=== PATIENT | female | born 1995 | race Caucasian/White ===

== ENCOUNTER 2018-05-16 12:28 | Emergency (ER) | payer BC, OTHER, SELFPAY ==
[2018-05-16 12:30] VITALS: BP 130/93; PULSE 74; RESP 16; TEMP 36.6; BMI 34.4
--- NOTE | 2018-05-16 12:53 | EKG12_ITS ---
Test Reason : CP Blood Pressure : / mmHG Vent. Rate : 064 BPM Atrial Rate : 064 BPM P-R Int : 140 ms QRS Dur : 094 ms QT Int : 412 ms P-R-T Axes : 029 063 041 degrees QTc Int : 425 ms Normal sinus rhythm with sinus arrhythmia Normal ECG Confirmed by JORGE POPE, CHRISTINE ([id number]), development editor JEROME CRYSTAL ([id number] on 05/19/2018 1:49:48 PM Referred By: DESMOND Confirmed By:CHRISTINE PATEL MD
--- NOTE | 2018-05-16 13:00 | NURSING ---
NO OLD EKGS
--- NOTE | 2018-05-16 13:14 | RAD_ITS ---
STUDY: X-RAY CHEST REASON FOR EXAM: Female, 22 years old. Chest pain. TECHNIQUE: PA and lateral views of the chest. COMPARISON: Comparison is made with prior study dated May 24, 2013. FINDINGS: There now is evidence of a reticular nodular pattern in both lungs. This may represent mild bilateral infectious process. Follow-up is recommended. There is no demonstrated pleural abnormality. Normal size heart. Normal mediastinum and rosalio. Normal visualized pulmonary arteries. Normal visualized aortic arch and descending thoracic aorta. Normal visualized thoracic spine. Normal visualized ribs, clavicles, and shoulders. There is no demonstrated abnormality of the visualized soft tissue structures of the upper abdomen. RAD/Chest PA and Lateral IMPRESSION: Reticular nodular pattern in both lungs worse at the lung bases. This may represent an infectious process. Follow-up is recommended. Electronically Signed: Frank Lozano, at 13:47 EST , Service support ,
[2018-05-16 13:15] LABS: Absolute Lymphocyte Count 2.01 X10^3/ul (0.83-4.51); Absolute Neutrophil Count 5.8 X10^3/uL (2.0-7.7); Basophil# 0.02 X10^3/uL; Basophil% 0.2 % (0-1); Eosinophil# 0.46 X10^3/uL; Eosinophils% 5.1 % (0-5); Hematocrit 40.2 % (37-47); Hemoglobin 13.3 g/dl (12.0-15.0); Lymphocyte # 2.01 X10^3/ul (4.0); Lymphocyte % 22.2 % (19-41); Mean Corp Hgb Conc 33.1 g/gl (32-36); Mean Corpuscular Hgb 28.2 pg (27.0-32.0); Mean Corpuscular Volume 85.2 fL (81-99); Mean Platelet Vol. 9.2 fl (6.2-12.0); Monocyte# 0.71 X10^3/uL; Monocyte% 7.9 % (0-10); Neutrophil # 5.82 X10^3/uL (2.7-7.7); Neutrophil % 64.4 % (47-70); Platelet Count 269 K/mm3 (150-450); RBC Distribution Width CV 13.5 % (11.6-14.6); RBC Distribution Width SD 42.1 fl (35.1-43.9); Red Blood Count 4.72 M/mm3 (4.2-5.4)
[2018-05-16 13:17] LABS: Erythrocyte Sedimentation Rate 9 mm/hr (0-20)
[2018-05-16 13:18] LABS: POSITIVE COUNT NO; POSITIVE DIFFERENTIAL NO; POSITIVE MORPHOLOGY NO
--- NOTE | 2018-05-16 13:23 | RAD_ITS ---
STUDY: X-RAY - LEFT SHOULDER REASON FOR EXAM: Female, 22 years old. One month history of shoulder pain. No known injury. TECHNIQUE: 2 view(s) of the shoulder. COMPARISON: None. FINDINGS: Normal glenohumeral articulation. Normal acromioclavicular joint. Normal acromion. Normal humeral head and visualized proximal humerus. The soft tissue structures are unremarkable. Normal visualized pulmonary apex. RAD/Shoulder min 2 Views IMPRESSION: Normal x-ray examination of the shoulder. Electronically Signed: Frank Lozano, at 13:46 EST , Service support ,
[2018-05-16 13:25] LABS: D-Dimer Quantitative (DVT/PE) < 0.27 FEU/ug/m (0.27-0.49)
--- NOTE | 2018-05-16 14:12 | ED.VISSUMM ---
- ER Visit Summary Date of Service: 05/16/18 Chief Complaint: [Chest pain] History of Present Illness: The patient is a 22 F [presents to the emergency department with chest discomfort that started yesterday. Patient states that she developed the discomfort somewhat suddenly. Patient describes a stabbing pain that is worse with deep breath and movement. She denies any fever or cough. He denies any shortness of breath. He denies recent illness. He denies any trauma to her chest. She denies recent travel or surgery. She has not had pain like this before.] Physical Examination: [HEENT-PERRLA, EOMI. Cranial nerves II through XII grossly intact. TMs clear. Mucous membranes moist. No adenopathy. Cardiovascular-regular rate and rhythm without murmur or ectopy. Chest wall-patient does have some tenderness to palpation over the sternum and the left sternal costal cartilages. Lungs-clear to auscultation, chest wall stable without crepitus or subcu emphysema Abdomen-normoactive bowel sounds, soft, nontender, no rebound or rigidity, no peritoneal signs. Extremities-intact ?4, normal range of motion, normal pulses, atraumatic. Left shoulder-patient has some pale discoloration to the lateral aspect of her shoulder on the skin measuring approximately 1 cm x 2 cm. Area is tender to palpation. Patient has normal range of motion at the glenohumeral joint.] Test Results: [EKG obtained showed a sinus rhythm with a ventricular rate of 64 bpm with occasional PACs. CBC with differential is normal. Sed rate was 9. D-dimer was less than 0.27. Chest x-ray showed a reticular nodular pattern lung bases which could be infectious x-rays of the left shoulder obtained showed nothing acute and was read as normal.] Emergency Department Course and Treatment: [Patient refused any pain medication] Treatment Plan: [Patient will be given a prescription for naproxen and advised to follow-up with primary care physician within next 3-5 days. Regarding the abnormal findings on chest x-ray I think these are incidental findings and she is had no infectious symptomatology therefore recommend she follow-up with her primary care physician or pulmonology for follow-up. There is no family history of autoimmune diseases.] Disposition: [Discharged home in stable condition] Impression: [Chest wall pain] This note was generated with Dragon dictation software. It may contain incorrect words, spelling, and punctuation that were not noted in review of the chart prior to signing ED Disposition - Plan for ED Patient: Referrals: Masood Avila DO [Primary Care Provider] -
--- NOTE | 2018-05-16 14:16 | ED.DEP ---
ED Disposition - Plan for ED Patient: Instructions: ED Chest Pain Atypical Unkn Cause, ED Chest Pain Costochondritis Prescriptions: Naproxen [Naprosyn] 500 mg PO BID PRN #20 tab Referrals: Masood Avila DO [Primary Care Provider] - 3-5 Days
--- NOTE | 2018-05-16 14:17 | ED.DCSUM_ITS ---
- ER Visit Summary Date of Service: 05/16/18 Chief Complaint: [Chest pain] History of Present Illness: The patient is a 22 F [presents to the emergency department with chest discomfort that started yesterday. Patient states that she developed the discomfort somewhat suddenly. Patient describes a stabbing pain that is worse with deep breath and movement. She denies any fever or cough. He denies any shortness of breath. He denies recent illness. He denies any trauma to her chest. She denies recent travel or surgery. She has not had pain like this before.] Physical Examination: [HEENT-PERRLA, EOMI. Cranial nerves II through XII grossly intact. TMs clear. Mucous membranes moist. No adenopathy. Cardiovascular-regular rate and rhythm without murmur or ectopy. Chest wall- patient does have some tenderness to palpation over the sternum and the left sternal costal cartilages. Lungs-clear to auscultation, chest wall stable without crepitus or subcu emphysema Abdomen-normoactive bowel sounds, soft, nontender, no rebound or rigidity, no peritoneal signs. Extremities-intact ?4, normal range of motion, normal pulses, atraumatic. Left shoulder-patient has some pale discoloration to the lateral aspect of her shoulder on the skin measuring approximately 1 cm x 2 cm. Area is tender to palpation. Patient has normal range of motion at the glenohumeral joint.] Test Results: [EKG obtained showed a sinus rhythm with a ventricular rate of 64 bpm with occasional PACs. CBC with differential is normal. Sed rate was 9. D- dimer was less than 0.27. Chest x-ray showed a reticular nodular pattern lung bases which could be infectious x-rays of the left shoulder obtained showed nothing acute and was read as normal.] Emergency Department Course and Treatment: [Patient refused any pain medication] Treatment Plan: [Patient will be given a prescription for naproxen and advised to follow-up with primary care physician within next 3-5 days. Regarding the abnormal findings on chest x-ray I think these are incidental findings and she is had no infectious symptomatology therefore recommend she follow-up with her primary care physician or pulmonology for follow-up. There is no family history of autoimmune diseases.] Disposition: [Discharged home in stable condition] Impression: [Chest wall pain] This note was generated with Dragon dictation software. It may contain incorrect words, spelling, and punctuation that were not noted in review of the chart prior to signing ED Disposition - Plan for ED Patient: Referrals: Masood Avila DO [Primary Care Provider] -
[2018-05-16 14:25] VITALS: BP 121/76; PULSE 87; RESP 18; O2SAT 99
== END 2018-05-16 14:26 | disposition home or self-care (01) ==
LOC: ED 13:50
PROVIDERS: Emergency Provider Emergency Medicine; Family Provider Family Medicine; PCP Family Medicine
DX: R07.89 Other chest pain (principal); R91.8 Other nonspecific abnormal finding of lung field
CPT/HCPCS: 71046; 73030; 85025; 85379; 85652; 93005; 99283

== ENCOUNTER → 2019-03-19 18:03 | Outpatient (CLI) | payer SELFPAY | PROVIDERS: Family Provider Family Medicine; PCP Family Medicine; Referring Provider Obstetrics & Gynecology; Visit Provider Obstetrics & Gynecology | DX: Z12.4 Encounter for screening for malignant neoplasm of cervix (principal); Z11.3 Encounter for screening for infections with a predominantly sexual mode of transmission ==

== ENCOUNTER → 2019-04-09 15:12 | Outpatient (CLI) | payer OTHER, BC, SELFPAY ==
[2019-04-09 17:30] LABS: Color, Urine Yellow (Yellow); Glucose, Dipstick 50 mg/dl (Normal); Ketone-Dipstick Negative (Negative); Leukocyte Esterase-Dipstick Negative /ul (Negative); Nitrite-Dipstick Negative (Negative); Occult Blood-Urine Negative /ul (Negative); Protein-Dipstick Negative (Negative); Urine Bilirubin Dipstick Negative (Negative); Urine Clarity Sl. Cloudy (Clear); Urine Urobilinogen Normal (Normal); Urine pH 6.5 (5.0 - 8.0)
[2019-04-09 17:31] LABS: Absolute Lymphocyte Count 1.52 X10^3/uL (0.83-4.51); Absolute Neutrophil Count 8.7 X10^3/uL (2.0-7.7); Basophil# 0.03 X10^3/uL; Basophil% 0.3 % (0-1); Eosinophil# 0.15 X10^3/uL; Eosinophils% 1.4 % (0-5); Hematocrit 34.9 % (37-47); Hemoglobin 11.7 g/dL (12.0-15.0); Lymphocyte # 1.52 X10^3/ul (4.0); Lymphocyte % 13.8 % (19-41); Mean Corp Hgb Conc 33.5 g/dL (32-36); Mean Corpuscular Hgb 28.3 pg (27.0-32.0); Mean Corpuscular Volume 84.3 fL (81-99); Mean Platelet Vol. 9.6 fl (6.2-12.0); Monocyte# 0.51 X10^3/uL; Monocyte% 4.6 % (0-10); NRBC Flagged by Analyzer 0 % (0-5); Neutrophil # 8.73 X10^3/uL (2.7-7.7); Neutrophil % 79.4 % (47-70); Platelet Count 304 K/mm3 (150-450); RBC Distribution Width CV 13.1 % (11.6-14.6); RBC Distribution Width SD 39.8 fl (35.1-43.9); Red Blood Count 4.14 M/mm3 (4.2-5.4)
[2019-04-09 17:40] LABS: Glucose Challenge Gest 1H 50g 170 mg/dL (70-140)
[2019-04-09 17:48] LABS: Amphetamine Urine VISTA NEGATIVE (<1000 ng/mL); Barbiturate Urine VISTA NEGATIVE (< 200 ng/mL); Benzodiazepine Urine VISTA NEGATIVE (< 200 ng/mL); Cocaine Urine VISTA NEGATIVE (< 300 ng/mL); Ecstacy Urine VISTA NEGATIVE (< 500 ng/mL); Methadone Urine VISTA NEGATIVE (< 300 ng/mL); PCP Urine VISTA NEGATIVE (< 25 ng/mL); THC Urine VISTA NEGATIVE (< 50 ng/mL); Vista UDS pH Range 6
[2019-04-10 09:15] LABS: HIV - WCH Non-Reactive (Nonreactive); Hepatitis B Surface Antigen Non-Reactive (Nonreactive); Hepatitis C Antibody Non-Reactive (Nonreactive); Rubella IgG 37.9 IU/mL; Vitamin D,25 Hydroxy 14.1 ng/mL (29.95-100.01)
[2019-04-16 03:15] LABS: Prenatal RPR NONREACTIVE (NONREACTIVE)
== END ==
PROVIDERS: PCP Family Medicine; Referring Provider Advanced Practice Midwife; Visit Provider Advanced Practice Midwife
DX: Z34.81 Encounter for supervision of other normal pregnancy, first trimester (principal)
CPT/HCPCS: 36415; 80307; 81002; 82306; 82950; 84443; 85025; 86703; 86762; 86803; 87340

== ENCOUNTER → 2019-04-27 06:44 | Outpatient (CLI) | payer BC, SELFPAY ==
[2019-04-27 07:56] LABS: Glucose GTT-Gestation. Fasting 87 mg/dL (<105)
[2019-04-27 09:03] LABS: Glucose GTT-Gestational 1 Hr 208 mg/dL (<190)
[2019-04-27 09:22] LABS: Glucose GTT-Gestational 2 Hr 170 mg/dL (<165)
[2019-04-27 11:45] LABS: Glucose GTT-Gestational 3 Hr 127 L (<145)
== END ==
PROVIDERS: PCP Family Medicine; Referring Provider Obstetrics & Gynecology; Visit Provider Obstetrics & Gynecology
DX: O24.912 Unspecified diabetes mellitus in pregnancy, second trimester (principal); Z3A.00 Weeks of gestation of pregnancy not specified
CPT/HCPCS: 36415; 82951; 82952

== ENCOUNTER 2019-05-06 08:51 | Outpatient (RCR) | payer BC, SELFPAY | END 2019-05-16 23:59 | LOC: DC 08:51 | PROVIDERS: PCP Family Medicine; Visit Provider Obstetrics & Gynecology | DX: Z71.3 Dietary counseling and surveillance (principal); O24.419 Gestational diabetes mellitus in pregnancy, unspecified control | CPT/HCPCS: G0108 ==

== ENCOUNTER 2019-06-02 13:30 | Outpatient (RCR) | payer BC, SELFPAY | END 2019-06-02 23:59 | disposition home or self-care (01) | LOC: DC 13:30 | PROVIDERS: PCP Family Medicine; Visit Provider Obstetrics & Gynecology | DX: Z71.3 Dietary counseling and surveillance (principal); O24.419 Gestational diabetes mellitus in pregnancy, unspecified control; Z3A.00 Weeks of gestation of pregnancy not specified | CPT/HCPCS: 97802 ==

== ENCOUNTER → 2019-08-25 10:46 | Outpatient (CLI) | payer BC, OTHER, SELFPAY ==
[2019-08-25 14:04] LABS: Hemoglobin 11.6 g/dL (12.0-15.0); Mean Corp Hgb Conc 33.1 g/dL (32-36); Mean Corpuscular Hgb 27.8 pg (27.0-32.0); Mean Corpuscular Volume 83.7 fL (81-99); Mean Platelet Vol. 9.9 fl (6.2-12.0); Platelet Count 286 K/mm3 (150-450); RBC Distribution Width CV 14.5 % (11.6-14.6); RBC Distribution Width SD 43.6 fl (35.1-43.9); Red Blood Count 4.18 M/mm3 (4.2-5.4); White Blood Count 10.5 K/mm3 (4.4-11.0)
== END ==
PROVIDERS: PCP Family Medicine; Visit Provider Obstetrics & Gynecology
DX: Z34.82 Encounter for supervision of other normal pregnancy, second trimester (principal)
CPT/HCPCS: 36415; 85027

== ENCOUNTER → 2019-10-30 14:47 | Outpatient (CLI) | payer BC, SELFPAY | PROVIDERS: PCP Family Medicine; Visit Provider Obstetrics & Gynecology | DX: Z36.85 Encounter for antenatal screening for Streptococcus B (principal) | CPT/HCPCS: 87077; 87081; 87186 ==

== ENCOUNTER 2019-11-12 19:11 | Inpatient (IN) | payer BC, SELFPAY ==
[2019-11-12 19:33] VITALS: BP 133/84; PULSE 92; TEMP 36.9
[2019-11-12] MEDS: Lactated Ringers 1,000 ML 50 ML IV (19:45)
[2019-11-12 20:13] LABS: Absolute Lymphocyte Count 1.59 X10^3/uL (0.83-4.51); Absolute Neutrophil Count 6.8 X10^3/uL (2.0-7.7); Basophil# 0.03 X10^3/uL; Basophil% 0.3 % (0-1); Eosinophil# 0.11 X10^3/uL; Eosinophils% 1.1 % (0-5); Hematocrit 31.2 % (37-47); Hemoglobin 10.2 g/dL (12.0-15.0); Lymphocyte # 1.59 X10^3/ul (4.0); Lymphocyte % 16.5 % (19-41); Mean Corp Hgb Conc 32.7 g/dL (32-36); Mean Corpuscular Hgb 25.8 pg (27.0-32.0); Mean Corpuscular Volume 78.8 fL (81-99); Mean Platelet Vol. 10.9 fl (6.2-12.0); Monocyte% 10.4 % (0-10); NRBC Flagged by Analyzer 0 % (0-5); Neutrophil # 6.79 X10^3/uL (2.7-7.7); Neutrophil % 70.6 % (47-70); Platelet Count 242 K/mm3 (150-450); RBC Distribution Width CV 15.2 % (11.6-14.6); RBC Distribution Width SD 43.2 fl (35.1-43.9); Red Blood Count 3.96 M/mm3 (4.2-5.4); White Blood Count 9.6 K/mm3 (4.4-11.0)
[2019-11-12 20:14] VITALS: BMI 38.2
[2019-11-12] MEDS: miSOPROStol 25 MCG TABLET VAGINAL (20:45)
[2019-11-12 20:47] VITALS: PULSE 87; O2SAT 98
[2019-11-12] MEDS: metFORMIN (XR) 500 MG Tablet 1000 MG PO (21:29)
[2019-11-12 21:41] VITALS: TEMP 36.7
[2019-11-12 21:48] VITALS: BP 134/85; PULSE 87; O2SAT 97
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
[2019-11-12 23:18] VITALS: PULSE 90; O2SAT 98
[2019-11-12 23:19] VITALS: BP 134/83; PULSE 88
[2019-11-13] VITALS (21 sets, daily range): BP systolic 114–140; BP diastolic 66–109; PULSE 67–107; TEMP 36.1–37.2; O2SAT 85–98
[2019-11-13] MEDS: proMETHazine 25 MG Tablet PO (00:26)
[2019-11-13 00:41] LABS: Bedside Glucose 97 mg/dL (70-110)
[2019-11-13 00:41] LABS: Bedside Glucose 89 mg/dL (70-110)
[2019-11-13] MEDS: miSOPROStol 50 MCG TABLET PO (00:44)
[2019-11-13 00:50] LABS: Bedside Glucose 104 mg/dL (70-110)
[2019-11-13 04:56] LABS: Bedside Glucose 80 mg/dL (70-110)
[2019-11-13] MEDS: 0.9% Saline Lock 10 ML Syringe IV ×2 (06:45→18:09)
[2019-11-13] MEDS: Ondansetron 4 MG/2 ML Vial IV ×2 (06:45→23:20)
[2019-11-13] MEDS: Lactated Ringers 500 ML 999 ML IV (07:28)
--- NOTE | 2019-11-13 07:45 | PCM.PN.BLA ---
Progress Note LABOR PROGRESS NOTE No complaints. Reports mild contractions. AVSS GEN - NAD, AAO x 3 FHR 145, moderate variability, + accelerations, no decelerations TOCO 4/10 min SVE - exam limited due to patient discomfort, external os 1cm Laboratory Tests 11/13/19 11/13/19 11/12/19 Range/Units 04:48 00:42 21:01 WBC (4.4-11.0) K/mm3 RBC (4.2-5.4) M/mm3 Hgb (12.0-15.0) g/dL Hct (37-47) % MCV (81-99) fL MCH (27.0-32.0) pg MCHC (32-36) g/dL RDW Std Deviation (35.1-43.9) fl RDW Coeff of Tre (11.6-14.6) % Plt Count (150-450) K/mm3 MPV (6.2-12.0) fl Immature Gran % (Auto) (0.0-0.9) % Neut % (Auto) (47-70) % Lymph % (Auto) (19-41) % Carolina % (Auto) (0-10) % Eos % (Auto) (0-5) % Baso % (Auto) (0-1) % Absolute Neuts (auto) (2.0-7.7) X10^3/uL Absolute Lymphs (auto) (0.83-4.51) X10^3/uL Nucleated RBC % (0-5) % POC Glucose 80 104 89 (70-110) mg/dL Blood Type Antibody Screen 11/12/19 11/12/19 11/12/19 Range/Units 19:47 19:45 19:45 WBC 9.6 (4.4-11.0) K/mm3 RBC 3.96 L (4.2-5.4) M/mm3 Hgb 10.2 L (12.0-15.0) g/dL Hct 31.2 L (37-47) % MCV 78.8 L (81-99) fL MCH 25.8 L (27.0-32.0) pg MCHC 32.7 (32-36) g/dL RDW Std Deviation 43.2 (35.1-43.9) fl RDW Coeff of Tre 15.2 H (11.6-14.6) % Plt Count 242 (150-450) K/mm3 MPV 10.9 (6.2-12.0) fl Immature Gran % (Auto) 1.100 H (0.0-0.9) % Neut % (Auto) 70.6 H (47-70) % Lymph % (Auto) 16.5 L (19-41) % Carolina % (Auto) 10.4 H (0-10) % Eos % (Auto) 1.1 (0-5) % Baso % (Auto) 0.3 (0-1) % Absolute Neuts (auto) 6.8 (2.0-7.7) X10^3/uL Absolute Lymphs (auto) 1.59 (0.83-4.51) X10^3/uL Nucleated RBC % 0 (0-5) % POC Glucose 97 (70-110) mg/dL Blood Type A POSITIVE Antibody Screen NEGATIVE A/P: 24yo G1 @ 39 1/7wga with GDMA2 -Blood sugars appropriate range, Continue Metformin -Eat breakfast -IV fluid bolus, if contractions persist will start pitocin, otherwise proceed with misoprostol 50mcg after breakfast -Maternal and statuses reassuring STROKE Vital Signs/Narrative: Vital Signs Temp Pulse BP Pulse Ox 11/13/19 07:22 98.2 F 89 135/84 H 98 11/13/19 03:54 97.8 F 69 126/73 H 98
[2019-11-13] MEDS: metFORMIN (XR) 500 MG Tablet 1000 MG PO ×2 (09:32→18:09)
[2019-11-13] MEDS: Oxytocin 30 units/NS 500 ml 30 UNITS/500 ML IV.SOLN IV (09:33)
[2019-11-13 10:46] LABS: Bedside Glucose 122 mg/dL (70-110)
[2019-11-13 12:10] LABS: Bedside Glucose 79 mg/dL (70-110)
[2019-11-13 15:10] LABS: Bedside Glucose 74 mg/dL (70-110)
--- NOTE | 2019-11-13 15:49 | PCM.PN.BLA ---
Progress Note CE FT/TH/High. FHR Cat I - FHR 130/mod renetta/+accel/no decel, toco q3-4. Pit @ 20. Plan: allow pitocin break. Pt to ambulate, shower, eat dinner. Will restart after dinner. Discussed c/s for failed induction of labor briefly. STROKE Vital Signs/Narrative: Vital Signs Temp Pulse BP Pulse Ox 11/13/19 14:44 81 138/83 H 97 11/13/19 13:37 67 133/82 H 11/13/19 13:35 97.0 F L 95 11/13/19 11:55 69 117/66 11/13/19 11:54 97.6 F L 96
[2019-11-13 19:31] LABS: Bedside Glucose 91 mg/dL (70-110)
[2019-11-13] MEDS: FLUoxetine 20 MG Capsule 80 MG PO (20:14)
[2019-11-13 22:20] LABS: Bedside Glucose 100 mg/dL (70-110)
[2019-11-13] MEDS: Sodium Citrate/Citric Acid 30 ML UDC PO (22:22)
--- NOTE | 2019-11-13 22:46 | NURSING ---
Patient gave RN verbal assent to give baby medications at delivery; hepatitis B vaccine, vitamin K injection, and erythromycin eye ointment.
[2019-11-13] MEDS: Cefazolin 2 GM in 0.9% Normal Saline 100 ML IV (22:59)
[2019-11-14] VITALS (23 sets, daily range): BP systolic 98–152; BP diastolic 49–90; PULSE 82–105; RESP 16–18; TEMP 36.2–37.2; O2SAT 95–98
--- NOTE | 2019-11-14 00:09 | OP.PCM_ITS ---
Report of Operation Date of Procedure: 11/13/19 Pre-Operative Diagnosis: Elective, maternal request. Post-Operative Diagnosis: Elective, maternal request. 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 All risks, benefits, alternatives discussed with the patient including, but not limited to: risk of bleeding to the point of transfusion, infection, injury to surrounding tissue (bowel or bladder including prolonged luna catheter use), VTE, ICU admission. Patient aware and consented. Patient was taken to the operating room and spinal anesthesia was placed. Patient placed in the dorsal supine position with a left lateral tilt. Luna catheter placed. Prepped and draped in usual sterile fashion. Pfannenstiel skin incision made with scalpel and carried down through underlying tissue. Fascia nicked on either side of the midline and extended bilaterally with Charles scissors. Kimberley clamps used to grasp the superior fascial edge which was tented up and underlying rectus muscles were dissected off bluntly and sharply at midline. Inferior fascial edge was grasped with Kimberley clamps and underlying rectus muscles were dissected off bluntly and sharply. Rectus muscle at midline using hemostats. Peritoneum grasped with hemostats and incised sharply with Metzenbaum scissors. Bladder blade placed. Vesicouterine peritoneum identified and bladder flap created. Low transverse uterine incision made with scalpel and extended bluntly. Clear amniotic fluid noted. Hand was placed into the uterine cavity and with the assistance of gentle fundal pressure head was delivered followed by body. No nuchal cord. Cord clamped and cut, baby handed to nursing. Spontaneous delivery of placenta. Uterus was exteriorized and cleared of all clots with a dry lap. Uterine incision closed interlocking fashion followed by a second vertical imbricating stitch. Uterus replaced into the abdominal cavity. Some oozing noted that was resolved with Bovie cautery. Muscle reapproximated with horizontal mattress sutures. Fascia closed with a running stitch. Subcutaneous tissue closed with a running stitch and skin closed with running subcuticular stitch. At the end of the procedure all needle, lap, and sponge counts were correct x3. Cord Entanglement: None Cord Vessel Description: 3 Vessels Esitmated Blood Loss (ml): 800cc Infant Gender: Male (1 minute): 8 (5 minute): 9 Antibiotic Given: Ancef 2 grams IV x1, Zithromax 500 mg/5 mL X1
[2019-11-14] MEDS: Oxytocin 30 units/NS 500 ml 30 UNITS/500 ML IV.SOLN 167 UNITS IV (00:24)
[2019-11-14 01:01] LABS: Bedside Glucose 157 mg/dL (70-110)
[2019-11-14] MEDS: Acetaminophen 325 MG Tablet 650 MG PO ×4 (02:05→22:17)
[2019-11-14] MEDS: Lactated Ringers 1,000 ML 100 ML IV (03:31)
--- NOTE | 2019-11-14 05:16 | NURSING ---
Verified doses of Tylenol and Toradol with Dr. Alyssa Hendrickson via phone. Plan is to give medication doses as ordered per Dr. Alyssa Hendrickson.
[2019-11-14] MEDS: Ketorolac 30 MG/ML Syringe 15 MG IV ×4 (05:22→23:28)
[2019-11-14] MEDS: 0.9% Saline Lock 10 ML Syringe IV ×3 (05:23→23:32)
[2019-11-14 06:01] LABS: Bedside Glucose 81 mg/dL (70-110)
[2019-11-14 06:33] LABS: Hematocrit 27.1 % (37-47); Mean Corp Hgb Conc 33.2 g/dL (32-36); Mean Corpuscular Hgb 25.9 pg (27.0-32.0); Mean Corpuscular Volume 78.1 fL (81-99); Mean Platelet Vol. 10.7 fl (6.2-12.0); Platelet Count 197 K/mm3 (150-450); RBC Distribution Width CV 15.2 % (11.6-14.6); RBC Distribution Width SD 42.1 fl (35.1-43.9); Red Blood Count 3.47 M/mm3 (4.2-5.4); White Blood Count 15.3 K/mm3 (4.4-11.0)
[2019-11-14] MEDS: Senna/Docusate Sodium 1 Tablet PO (11:17)
--- NOTE | 2019-11-14 11:21 | PN.OBGYN_ITS ---
<Katarina Pickering - Last Filed: 11/14/19 11:21> Patient Problems: Active and Suspected Problems (Last Updated 11/13/19 @ 07:[address] Tamara Garcia MD) 39 weeks gestation of (Acute) Gestational diabetes (Acute) Depression (Acute) Subjective: Very tired today. IV medicine is keeping pain well controlled. Has not ambulated yet. Luna still in place. Objective: VSS. Fundus is firm, midline at u. Lochia rubra moderate. Incision with small [place], previous drainage, otherwise CDI. - Physical Exam Vitals/I&O's: Vital Signs Temp Pulse Resp BP Pulse Ox 97.9 F 83 16 98/49 L 96 11/14/19 08:13 11/14/19 08:13 11/14/19 08:13 11/14/19 08:13 11/14/19 08:13 Oxygen Delivery Method Room Air Weight: 101.151 kg Body Mass Index (BMI) 38.2 Intake and Output for Last 24 Hours 11/12/19 11/13/19 11/14/19 23:59 23:59 23:59 Intake Total 500 / 500 1729.77 / 1729.77 1015 / 1015 Output Total 575 / 575 Balance 500 / 500 1729.77 / 1329.77 440 / 440 General: Alert, Oriented x3, Cooperative HEENT: Atraumatic, PERRLA, EOMI, Normocephalic Neck: Supple, No JVD, Negative Carotid Bruits Lungs: Clear to auscultation, Normal air movement Cardiovascular: Regular rate, No murmurs Abdomen: Bowel Sounds Present, Soft, Non Tender, - - incision Extremities: No edema, Capillary Refill Less than 3 Seconds Skin: No rashes, No breakdown, Incision - CDI with scant old drainage circled Musculoskeletal: No Tenderness to Palpation of Joints or Extremities Neurological: Cranial nerves II-XII grossly intact Psych/Mental Status: Normal Affect, Appropriate Laboratory Results 11/13/19 12:03: POC Glucose 79 11/13/19 15:07: POC Glucose 74 11/13/19 19:22: POC Glucose 91 11/13/19 22:17: POC Glucose 100 11/14/19 00:16: POC Glucose 157 H 11/14/19 05:47: POC Glucose 81 11/14/19 06:25: WBC 15.3 H, RBC 3.47 L, Hgb 9.0 L, Hct 27.1 L, MCV 78.1 L, MCH 25.9 L, MCHC 33.2, RDW Std Deviation 42.1, RDW Coeff of Tre 15.2 H, Plt Count 197, MPV 10.7 Current Medications Acetaminophen (Tylenol) 650 mg PO Q6H [facility] Last Admin: 11/14/19 08:31 Dose: 650 mg Documented by: Bisacodyl (Dulcolax) 10 mg RECTAL UD PRN PRN Reason: If no BM Dextrose (D50w Syringe) 0 gm IV X1 PRN; Protocol PRN Reason: Hypoglycemia Diphenhydramine HCl (Benadryl) 25 mg PO Q6H PRN PRN PRN Reason: ITCHING Stop: 11/15/19 00:12 Glucagon () 1 mg IM .X1 PRN PRN Reason: Hypoglycemia Hydrocortisone (Hytone) 1 applic TOPICAL TID PRN PRN; Protocol PRN Reason: Discomfort Naloxone HCl 4 mg/ Dextrose 504 mls @ 0 mls/hr IV .Q0M PRN; Protocol PRN Reason: To maintain Resp. rate >10 Lactated Ringer's () 1,000 mls @ 100 mls/hr IV .Q10H [facility] Last Admin: 11/14/19 03:31 Dose: 100 mls/hr Documented by: Naloxone HCl 4 mg/ Dextrose 504 mls @ 0 mls/hr IV .Q0M PRN; Protocol PRN Reason: Respiratory depression Ibuprofen (Motrin) 600 mg PO Q6H [facility] Ketorolac Tromethamine (Toradol (Bkc)) 15 mg IV Q6H [facility] Stop: 11/14/19 23:31 Last Admin: 11/14/19 11:16 Dose: 15 mg Documented by: Methylergonovine Maleate (Methergine) 0.2 mg IM X1 PRN PRN Reason: Uterine Atony Nalbuphine HCl (Nubain) 5 mg IV Q3H PRN PRN PRN Reason: ITCHING Stop: 11/15/19 00:12 Naloxone HCl (Narcan) 0.02 mg IV Q1M PRN PRN Reason: RR< 10 AND PT UNRESPONSIVE Naloxone HCl (Narcan) 0.02 mg IV Q1M PRN PRN Reason: RR <10 and pt unresponsive Ondansetron HCl (Zofran) 4 mg IV Q4H PRN PRN PRN Reason: Nausea Last Admin: 11/13/19 23:20 Dose: 4 mg Documented by: Oxycodone HCl (Oxyir) 5 - 10 mg PO Q4H PRN PRN PRN Reason: Pain Score 4-10/10 Prochlorperazine Edisylate (Compazine Iv) 10 mg IV Q6H PRN PRN PRN Reason: NAUSEA Senna/Docusate Sodium (Senokot-S, Ethel-Colace) 0 tablet PO DAILY [facility] Last Admin: 11/14/19 11:17 Dose: 1 tablet Documented by: Simethicone (Mylicon) 80 mg PO PCHS PRN PRN Reason: Indigestion/stomach pain Sodium Chloride () 5 - 15 ml IV UD PRN PRN Reason: SALINE FLUSH Last Admin: 11/14/19 05:23 Dose: 10 ml Documented by: Zolpidem Tartrate (Ambien (Generic)) 5 mg PO QHS PRN PRN PRN Reason: Insomnia Medical Necessity - Tobacco Use Smoking Status: Never smoker Assessment/Plan All Active Problems (Last Updated 11/13/19 @ 07:[address] Tamara Garcia MD) 39 weeks gestation of (Acute) Gestational diabetes (Acute) Depression (Acute) A/P: POD #1 Primary Csection for failure to progress Normal involution and course Plan to remove luna today Plan to change to PO pain medication Would like to discharge tomorrow if possible <Evi Hendrickson - Last Filed: 11/14/19 11:46> - Physical Exam Vitals/I&O's: Vital Signs Temp Pulse Resp BP Pulse Ox 97.9 F 83 16 98/49 L 96 11/14/19 08:13 11/14/19 08:13 11/14/19 08:13 11/14/19 08:13 11/14/19 08:13 Oxygen Delivery Method Room Air Weight: 101.151 kg Body Mass Index (BMI) 38.2 Intake and Output for Last 24 Hours 11/12/19 11/13/19 11/14/19 23:59 23:59 23:59 Intake Total 500 / 500 1729.77 / 1729.77 1015 / 1015 Output Total 575 / 575 Balance 500 / 500 1729.77 / 1329.77 440 / 440 Laboratory Results 11/13/19 12:03: POC Glucose 79 11/13/19 15:07: POC Glucose 74 11/13/19 19:22: POC Glucose 91 11/13/19 22:17: POC Glucose 100 11/14/19 00:16: POC Glucose 157 H 11/14/19 05:47: POC Glucose 81 11/14/19 06:25: WBC 15.3 H, RBC 3.47 L, Hgb 9.0 L, Hct 27.1 L, MCV 78.1 L, MCH 25.9 L, MCHC 33.2, RDW Std Deviation 42.1, RDW Coeff of Tre 15.2 H, Plt Count 197, MPV 10.7 Current Medications Acetaminophen (Tylenol) 650 mg PO Q6H [facility] Last Admin: 11/14/19 08:31 Dose: 650 mg Documented by: Bisacodyl (Dulcolax) 10 mg RECTAL UD PRN PRN Reason: If no BM Dextrose (D50w Syringe) 0 gm IV X1 PRN; Protocol PRN Reason: Hypoglycemia Diphenhydramine HCl (Benadryl) 25 mg PO Q6H PRN PRN PRN Reason: ITCHING Stop: 11/15/19 00:12 Glucagon () 1 mg IM .X1 PRN PRN Reason: Hypoglycemia Hydrocortisone (Hytone) 1 applic TOPICAL TID PRN PRN; Protocol PRN Reason: Discomfort Naloxone HCl 4 mg/ Dextrose 504 mls @ 0 mls/hr IV .Q0M PRN; Protocol PRN Reason: To maintain Resp. rate >10 Lactated Ringer's () 1,000 mls @ 100 mls/hr IV .Q10H [facility] Last Admin: 11/14/19 03:31 Dose: 100 mls/hr Documented by: Naloxone HCl 4 mg/ Dextrose 504 mls @ 0 mls/hr IV .Q0M PRN; Protocol PRN Reason: Respiratory depression Ibuprofen (Motrin) 600 mg PO Q6H [facility] Ketorolac Tromethamine (Toradol (Bkc)) 15 mg IV Q6H [facility] Stop: 11/14/19 23:31 Last Admin: 11/14/19 11:16 Dose: 15 mg Documented by: Methylergonovine Maleate (Methergine) 0.2 mg IM X1 PRN PRN Reason: Uterine Atony Nalbuphine HCl (Nubain) 5 mg IV Q3H PRN PRN PRN Reason: ITCHING Stop: 11/15/19 00:12 Naloxone HCl (Narcan) 0.02 mg IV Q1M PRN PRN Reason: RR< 10 AND PT UNRESPONSIVE Naloxone HCl (Narcan) 0.02 mg IV Q1M PRN PRN Reason: RR <10 and pt unresponsive Ondansetron HCl (Zofran) 4 mg IV Q4H PRN PRN PRN Reason: Nausea Last Admin: 11/13/19 23:20 Dose: 4 mg Documented by: Oxycodone HCl (Oxyir) 5 - 10 mg PO Q4H PRN PRN PRN Reason: Pain Score 4-10/10 Prochlorperazine Edisylate (Compazine Iv) 10 mg IV Q6H PRN PRN PRN Reason: NAUSEA Senna/Docusate Sodium (Senokot-S, Ethel-Colace) 0 tablet PO DAILY [facility] Last Admin: 11/14/19 11:17 Dose: 1 tablet Documented by: Simethicone (Mylicon) 80 mg PO [facility] PRN PRN Reason: Indigestion/stomach pain Sodium Chloride () 5 - 15 ml IV UD PRN PRN Reason: SALINE FLUSH Last Admin: 11/14/19 05:23 Dose: 10 ml Documented by: Zolpidem Tartrate (Ambien (Generic)) 5 mg PO QHS PRN PRN PRN Reason: Insomnia Assessment/Plan 24 yo POD#1 s/p elective section. Chronic anemia, iron supplement at home. Expect discharge tomorrow morning.
--- NOTE | 2019-11-14 14:15 | CASEMGMT ---
Social Work Assessment Labor and Delivery Unit Date of Referral: 11/14/2019 Time of Referral: 03:14 Referred By: Dr. Evi Hendrickson Date of Intervention: 11/14/2019 Time of Intervention: 14:15 Reason for Referral: Mother of baby (MOB) with history of anxiety. History obtained from: MOB, Father of baby (FOB), nursing staff and chart. Household composition: MOB, FOB (Connor Woodson) and now this infant, El Woodson. Patient's parent/guardian status: FOB reports that was plan and accepted. Both MOB and FOB report a connection with . MOB and FOB are . Medical History: MOB prior to delivering infant. MOB delivered infant via at 39 weeks. Infant male born on 11/13/2020 with apgars of 8 and 9 at 1min and 5min. weight of 3570g. MOB with gestational diabetes. transferred to special care nursery on 11/14/2019 for monitoring blood sugars further. Special care nursery reports that is doing well. Educational Status: MOB with a masters degree in social work. MOB denies any issues with comprehension or understanding. Financial Status: MOB and FOB both work full-time. 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 FOB works for the [employer] and will have two weeks off work. Infant Supplies: MOB reports to have all needed supplies crib, car seat, clothing etc. Childcare/Caregiver(s): MOB plans to be primary caregiver of until returning to work. Transportation: No issues. Programs/Agencies Involved: MOB with WIC involvement prior to infant delivery. MOB/FOB deny a need for WIC services. Children Services/Legal Issues: None Mental Health History: MOB with history of Anxiety and Depression. MOB states to manage depression through Prozac. MOB denies any history of suicidal thoughts/plans/intents. Substance Use History: Denies. Maternal and Drug Screens: No drug screens completed on admission. MOB with negative tox screen in 2019. PHQ9: Did not trigger at time of assessment. MOB has been tearful with nursing staff but was not with this home health care social worker. Family/Social Stressors: Denies any current stressors. Support Systems: MOB states to have positive support from family and friends. Depression and Anxiety/Shaken Baby/Safe Sleeping: MOB educated on Depression and Anxiety along with Shaken Baby and Safe Sleeping. MOB provided with local resources and information on depression and anxiety, shaken baby, and safe sleeping. ASSESSMENT: Met with MOB and FOB in special care nursery with infant. This home health care social worker introduced self and home health care social worker role. This home health care social worker offering to return at a later time. MOB wanting to speak with this home health care social worker and wanting FOB to remain present. MOB holding . MOB gazing towards and finger tipping often during assessment. MOB with a pleasant and engaged affect. MOB states to have no concerns on returning to community. This home health care social worker broached topic of depression signs/symptoms. MOB states to have coping skills in place and to feel comfortable speaking with FOB or doctors if depression signs or symptoms would develop. This home health care social worker acknowledging with MOB and FOB that MOB did have an extended labor with now in SCN and this can cause stress or emotions that are normal such a being tearful or tried. Normalizing MOB's current emotions/feelings. MOB and FOB thanking this home health care social worker and declining any community referrals. PLAN: Infant to discharge to home with MOB and FOB once medically cleared. No other services requested or indicated. Nelda GUNDERSON, TAWNYA
--- NOTE | 2019-11-14 15:50 | CPS ---
incentive left in room, nursing to start
[2019-11-15] VITALS (7 sets, daily range): BP systolic 128–148; BP diastolic 65–86; PULSE 77–112; RESP 14–16; TEMP 36.1–36.8; O2SAT 96
[2019-11-15] MEDS: oxyCODONE 5 MG Tablet PO ×5 (02:38→22:02)
[2019-11-15] MEDS: Acetaminophen 325 MG Tablet 650 MG PO ×4 (03:50→22:35)
[2019-11-15] MEDS: Ibuprofen 600 MG Tablet PO ×4 (05:43→22:35)
--- NOTE | 2019-11-15 09:34 | PN.OBGYN_ITS ---
<Katarina Pickering - Last Filed: 11/15/19 09:54> Patient Problems: Active and Suspected Problems (Last Updated 11/13/19 @ 07:[address] Tamara Garcia MD) 39 weeks gestation of (Acute) Gestational diabetes (Acute) Depression (Acute) Subjective: Feeling better today. Reports yesterday was very emotional after being told one thing after another with her son being in the special care nursery. She cried most of the day yesterday, but today is doing a lot better. She continues to breastfeed and isn't sleeping much going back and forth between her room and special care. States pain is much better today and when she is resting it is 0/10. When ambulating pain becomes 4/10. Urinating well and passing flatus. Would like to stay as long as son has to stay inpatient. Objective: VSS. Fundus is firm, midline, u/1. Incision is CDI. Lochia rubra light. - Physical Exam Vitals/I&O's: Vital Signs Temp Pulse Resp BP Pulse Ox 97.5 F L 77 14 148/86 H 96 11/15/19 08:25 11/15/19 08:25 11/15/19 08:25 11/15/19 08:25 11/15/19 02:40 Oxygen Delivery Method Room Air Weight: 101.151 kg Body Mass Index (BMI) 38.2 Intake and Output for Last 24 Hours 11/13/19 11/14/19 11/15/19 23:59 23:59 23:59 Intake Total 1729.77 / 1729.77 1663.33 / 1663.33 Output Total 1625 / 1625 Balance 1729.77 / 1329.77 38.33 / 38.33 General: Alert, Oriented x3, Cooperative HEENT: Atraumatic, PERRLA, EOMI, Normocephalic Neck: Supple, No JVD, Negative Carotid Bruits Lungs: Clear to auscultation, Normal air movement Cardiovascular: Regular rate, No murmurs Abdomen: Bowel Sounds Present, Soft, Non Tender, - - incision Extremities: No edema, Capillary Refill Less than 3 Seconds Skin: No rashes, No breakdown, Incision - CDI Musculoskeletal: No Tenderness to Palpation of Joints or Extremities Neurological: Cranial nerves II-XII grossly intact Psych/Mental Status: Normal Affect, Appropriate Laboratory Results 11/12/19 19:45: Blood Type Cancelled, Antibody Screen Cancelled 11/14/19 20:00: Blood Type A POSITIVE, Antibody Screen NEGATIVE Current Medications Acetaminophen (Tylenol) 650 mg PO Q6H [facility] Last Admin: 11/15/19 03:50 Dose: 650 mg Documented by: Bisacodyl (Dulcolax) 10 mg RECTAL UD PRN PRN Reason: If no BM Dextrose (D50w Syringe) 0 gm IV X1 PRN; Protocol PRN Reason: Hypoglycemia Glucagon () 1 mg IM .X1 PRN PRN Reason: Hypoglycemia Hydrocortisone (Hytone) 1 applic TOPICAL TID PRN PRN; Protocol PRN Reason: Discomfort Naloxone HCl 4 mg/ Dextrose 504 mls @ 0 mls/hr IV .Q0M PRN; Protocol PRN Reason: To maintain Resp. rate >10 Naloxone HCl 4 mg/ Dextrose 504 mls @ 0 mls/hr IV .Q0M PRN; Protocol PRN Reason: Respiratory depression Ibuprofen (Motrin) 600 mg PO Q6H [facility] Last Admin: 11/15/19 05:43 Dose: 600 mg Documented by: Methylergonovine Maleate (Methergine) 0.2 mg IM X1 PRN PRN Reason: Uterine Atony Naloxone HCl (Narcan) 0.02 mg IV Q1M PRN PRN Reason: RR< 10 AND PT UNRESPONSIVE Naloxone HCl (Narcan) 0.02 mg IV Q1M PRN PRN Reason: RR <10 and pt unresponsive Ondansetron HCl (Zofran) 4 mg IV Q4H PRN PRN PRN Reason: Nausea Last Admin: 11/13/19 23:20 Dose: 4 mg Documented by: Oxycodone HCl (Oxyir) 5 - 10 mg PO Q4H PRN PRN PRN Reason: Pain Score 4-10/10 Last Admin: 11/15/19 08:25 Dose: 10 mg Documented by: Prochlorperazine Edisylate (Compazine Iv) 10 mg IV Q6H PRN PRN PRN Reason: NAUSEA Senna/Docusate Sodium (Senokot-S, Ethel-Colace) 0 tablet PO DAILY [facility] Last Admin: 11/14/19 11:17 Dose: 1 tablet Documented by: Simethicone (Mylicon) 80 mg PO [facility] PRN PRN Reason: Indigestion/stomach pain Sodium Chloride () 5 - 15 ml IV UD PRN PRN Reason: SALINE FLUSH Last Admin: 11/14/19 23:32 Dose: 15 ml Documented by: Zolpidem Tartrate (Ambien (Generic)) 5 mg PO QHS PRN PRN PRN Reason: Insomnia Medical Necessity - Tobacco Use Smoking Status: Never smoker Assessment/Plan All Active Problems (Last Updated 11/13/19 @ 07:[address] Tamara Garcia MD) 39 weeks gestation of (Acute) Gestational diabetes (Acute) Depression (Acute) A/P: POD #2 S/P Primary Normal involution and lochia mother Male infant in special care nursery for blood sugar control Maternal BS stable, continue oral medication BPs have been mildly elevated, to get pre-e labs Anxious/Sad yesterday, but denies any s/s of PPD right now Resume home dosage of Fluoxetine 80mg QHS Will plan to discharge tomorrow Attending MD: Dr. Alyssa Hendrickson updated on unit <Evi Hendrickson - Last Filed: 11/15/19 19:42> - Physical Exam Vitals/I&O's: Vital Signs Temp Pulse Resp BP Pulse Ox 97 F L 92 16 128/65 H 96 11/15/19 16:01 11/15/19 16:01 11/15/19 16:01 11/15/19 16:01 11/15/19 02:40 Oxygen Delivery Method Room Air Weight: 101.151 kg Body Mass Index (BMI) 38.2 Intake and Output for Last 24 Hours 11/13/19 11/14/19 11/15/19 23:59 23:59 23:59 Intake Total 1729.77 / 1729.77 1663.33 / 1663.33 Output Total 1625 / 1625 Balance 1729.77 / 1329.77 38.33 / 38.33 Laboratory Results 11/12/19 19:45: Blood Type Cancelled, Antibody Screen Cancelled 11/14/19 20:00: Blood Type A POSITIVE, Antibody Screen NEGATIVE 11/15/19 12:30: WBC 9.5, RBC 3.25 L, Hgb 8.3 L, Hct 25.8 L, MCV 79.4 L, MCH 25.5 L, MCHC 32.2, RDW Std Deviation 44.5 H, RDW Coeff of Tre 15.6 H, Plt Count 211, MPV 10.6, Immature Gran % (Auto) 1.000 H, Neut % (Auto) 77.6 H, Lymph % (Auto) 13.3 L, [place] % (Auto) 6.3, Eos % (Auto) 1.6, Baso % (Auto) 0.2, Absolute Neuts (auto) 7.4, Absolute Lymphs (auto) 1.27, Nucleated RBC % 0 11/15/19 12:30: Sodium 139, Potassium 4.1, Chloride 110 H, Carbon Dioxide 24.0, Anion Gap 5, BUN 9, Creatinine 0.56, Estim Creat Clear Calc 132.61, Est GFR (MDRD) Af Amer 169, Est GFR (MDRD) Non-Af 140, BUN/Creatinine Ratio 16.0, Glucose 105, Calcium 8.7, Total Bilirubin 0.20, AST 20, ALT 11 L, Alkaline Phosphatase 153 H, Total Protein 5.9 L, Albumin 2.3 L, Globulin 3.6, Albumin/Globulin Ratio 0.6 L 11/15/19 13:20: U Random Total Protein < 6.0, Urine Creatinine 22.20 Current Medications Acetaminophen (Tylenol) 650 mg PO Q6H [facility] Last Admin: 11/15/19 15:56 Dose: 650 mg Documented by: Bisacodyl (Dulcolax) 10 mg RECTAL UD PRN PRN Reason: If no BM Dextrose (D50w Syringe) 0 gm IV X1 PRN; Protocol PRN Reason: Hypoglycemia Fluoxetine HCl (Prozac) 80 mg PO QHS [facility] Glucagon () 1 mg IM .X1 PRN PRN Reason: Hypoglycemia Hydrocortisone (Hytone) 1 applic TOPICAL TID PRN PRN; Protocol PRN Reason: Discomfort Naloxone HCl 4 mg/ Dextrose 504 mls @ 0 mls/hr IV .Q0M PRN; Protocol PRN Reason: To maintain Resp. rate >10 Naloxone HCl 4 mg/ Dextrose 504 mls @ 0 mls/hr IV .Q0M PRN; Protocol PRN Reason: Respiratory depression Ibuprofen (Motrin) 600 mg PO Q6H [facility] Last Admin: 11/15/19 17:56 Dose: 600 mg Documented by: Methylergonovine Maleate (Methergine) 0.2 mg IM X1 PRN PRN Reason: Uterine Atony Naloxone HCl (Narcan) 0.02 mg IV Q1M PRN PRN Reason: RR< 10 AND PT UNRESPONSIVE Naloxone HCl (Narcan) 0.02 mg IV Q1M PRN PRN Reason: RR <10 and pt unresponsive Ondansetron HCl (Zofran) 4 mg IV Q4H PRN PRN PRN Reason: Nausea Last Admin: 11/13/19 23:20 Dose: 4 mg Documented by: Oxycodone HCl (Oxyir) 5 - 10 mg PO Q4H PRN PRN PRN Reason: Pain Score 4-10/10 Last Admin: 11/15/19 17:56 Dose: 10 mg Documented by: Prochlorperazine Edisylate (Compazine Iv) 10 mg IV Q6H PRN PRN PRN Reason: NAUSEA Senna/Docusate Sodium (Senokot-S, Ethel-Colace) 0 tablet PO DAILY [facility] Last Admin: 11/15/19 10:13 Dose: 2 tablet Documented by: Simethicone (Mylicon) 80 mg PO [facility] PRN PRN Reason: Indigestion/stomach pain Sodium Chloride () 5 - 15 ml IV UD PRN PRN Reason: SALINE FLUSH Last Admin: 11/14/19 23:32 Dose: 15 ml Documented by: Zolpidem Tartrate (Ambien (Generic)) 5 mg PO QHS PRN PRN PRN Reason: Insomnia Assessment/Plan POD#2 s/p primary section. Baby in special care for glucose control. New dx of gestational hypertension based on BPs >140/90s during admission. Labs wnl. Home tomorrow.
[2019-11-15] MEDS: Senna/Docusate Sodium 1 Tablet PO (10:13)
[2019-11-15 12:40] LABS: Absolute Lymphocyte Count 1.27 X10^3/uL (0.83-4.51); Absolute Neutrophil Count 7.4 X10^3/uL (2.0-7.7); Basophil# 0.02 X10^3/uL; Basophil% 0.2 % (0-1); Eosinophil# 0.15 X10^3/uL; Eosinophils% 1.6 % (0-5); Hematocrit 25.8 % (37-47); Hemoglobin 8.3 g/dL (12.0-15.0); Lymphocyte # 1.27 X10^3/ul (4.0); Lymphocyte % 13.3 % (19-41); Mean Corp Hgb Conc 32.2 g/dL (32-36); Mean Corpuscular Hgb 25.5 pg (27.0-32.0); Mean Corpuscular Volume 79.4 fL (81-99); Mean Platelet Vol. 10.6 fl (6.2-12.0); Monocyte% 6.3 % (0-10); NRBC Flagged by Analyzer 0 % (0-5); Neutrophil # 7.39 X10^3/uL (2.7-7.7); Neutrophil % 77.6 % (47-70); Platelet Count 211 K/mm3 (150-450); RBC Distribution Width CV 15.6 % (11.6-14.6); RBC Distribution Width SD 44.5 fl (35.1-43.9); Red Blood Count 3.25 M/mm3 (4.2-5.4); White Blood Count 9.5 K/mm3 (4.4-11.0)
[2019-11-15 12:53] LABS: ALB/GLOB Ratio 0.6 RATIO (0.9-2.4); AST(SGOT) 20 U/L (15-37); Alanine Aminotransfer ALT/SGPT 11 U/L (13-56); Albumin, Serum 2.3 g/dL (3.2-5.0); Alkaline Phosphatase 153 U/L (45-117); Anion Gap 5 (5-15); BUN 9 mg/dL (7-18); Calcium,Total 8.7 mg/dL (8.5-10.1); Chloride 110 mmol/L (98-107); Creatinine, Serum 0.56 mg/dL (0.55-1.02); EST Glomerular Filtration Rate 140 mL/min (>60); Est Glom Filt Rate - Afr Amer 169 mL/min (>60); Estimated Creatinine Clearance 132.61 ml/min; Globulin 3.6 g/dL (2.2-4.2); Glucose 105 mg/dL (74-106); Potassium 4.1 mmol/L (3.5-5.1); Protein, Total 5.9 g/dL (6.4-8.2); Sodium Level 139 mmol/L (136-145)
[2019-11-15 13:40] LABS: Protein, Urine (Random) < 6.0 mg/dL (<11.9)
[2019-11-15] MEDS: FLUoxetine 20 MG Capsule 80 MG PO (22:38)
[2019-11-16] MEDS: Acetaminophen 325 MG Tablet 650 MG PO ×2 (03:33→09:54)
[2019-11-16 03:34] VITALS: BP 124/69; PULSE 82; RESP 18; TEMP 36.3; O2SAT 96
[2019-11-16] MEDS: oxyCODONE 5 MG Tablet PO ×3 (03:54→13:41)
[2019-11-16] MEDS: Ibuprofen 600 MG Tablet PO ×2 (05:43→11:25)
--- NOTE | 2019-11-16 07:44 | DCINST_ITS ---
Discharge Diet: No Restrictions Discharge Activity: May Not Drive - for 2 weeks or while taking narcotic pain meds., May Shower, May Take a Tub Bath - in 7 days. May resume sexual activity in: 4-6 weeks Lifting Restrictions: 20 pounds Additional Activity Instructions:: Nothing in the vagina for 4-6 weeks. You may return to work/school in 6 weeks. Call your doctor if your incision/area has: Continuous Slow Oozing, Sudden Increased Bleeding, Increased Pain/ Swelling, Increased Redness, Foul Smelling Discharge Call your doctor if you observe: Fever of 101 or Higher Suture Line Care: Avoid Pulling/Pushing, Avoid Pinching/Bending Remove Dressing in (days):: 5 Cleanse incision/area with: Soap & Water Additional Instructions: If you experience any of the following, contact your healthcare provider. * Bleeding that soaks a pad every hour for 2 hours * Fever 100.4 or higher * Unrelieved incision or abdominal pain * Swelling, redness, discharge or bleeding from your incision or episiotomy site * Your incision begins to separate * Problems urinating (including inability to urinate or burning while urinating). * Visual changes * Severe headache * Flu-like symptoms * Pain or redness in one of both of your breasts * Pain, warmth, tenderness or swelling in your legs, especially the calf area * Frequent nausea and vomiting * Symptoms of depression or anxiety If you experience any of the following, call 911 or go to the nearest Emergency Room. * Chest pain * Problems breathing * Seizure activity * Partial or complete paralysis of a body part, slurred speech, weakness or drooping of the face, or a sudden inability to walk or hold your balance Allergies/Adverse Reactions: Allergies No Known Allergies Allergy (Verified 05/16/18 12:33) Medications to take at Discharge Fluoxetine HCl 80 mg PO DAILY 09/24/15 Pnv No.95/Ferrous Fum/Folic AC [ Caplet] 1 ea PO DAILY 11/12/19 Follow-Up: Call to make an appointment with your doctor for an incision and BP check in 1 week. You will also need a 6 week post- follow up appointment. Test results from this visit will be discussed in further detail at your follow- up appointment, if applicable. Please Follow Up With: Tamara Fofana MD - ] When: 1 week for incision and BP check Primary Care Physician: Masood Avila DO [Primary Care Provider] -
--- NOTE | 2019-11-16 07:47 | PCM.DC.SUM ---
Discharge Date and Diagnosis - Problem List Patient Problems: Active and Suspected Problems (Last Updated 11/13/19 @ 07:[address] Tamara Garcia MD) 39 weeks gestation of (Acute) Gestational diabetes (Acute) Depression (Acute) Date of Admission: 11/12/19 Date of Discharge: 11/16/19 - Primary Discharge Diagnosis Acute Problems: Active Problems (Last Updated 11/13/19 @ 07:[address] Tamara Garcia MD) 39 weeks gestation of (Acute) Gestational diabetes (Acute) Depression (Acute) Hospital Course and Treatment Operations: - - section Summary of Care Provided: The patient is a 24 year old F [] Patient Problems: Active and Suspected Problems (Last Updated 11/13/19 @ 07:[address] Tamara Garcia MD) 39 weeks gestation of (Acute) Gestational diabetes (Acute) Depression (Acute) Subjective: Feeling much better, but still having a lot of abdominal sharp pain with quick movements. Has been ambulating to and from special care nursery. Urinating well and passing flatus. well. Denies any concerns. Would like to discharge today if infant can. Objective: VSS with one systolic BP 140s overnight, but reported anxiety after leaving special care nursery. Fundus is firm, midline, u/1. Surgical dressing is dry, intact with small circled amount of old drainage. Abdominal binder in place. Lochia rubra light. - Physical Exam Vitals/I&O's: Vital Signs Temp Pulse Resp BP Pulse Ox 97.3 F L 82 18 124/69 H 96 11/16/19 03:34 11/16/19 03:34 11/16/19 03:34 11/16/19 03:34 11/16/19 03:34 Oxygen Delivery Method Room Air Weight: 101.151 kg Body Mass Index (BMI) 38.2 Intake and Output for Last 24 Hours 11/14/19 11/15/19 11/16/19 23:59 23:59 23:59 Intake Total 1663.33 / 1663.33 Output Total 1625 / 1625 Balance 38.33 / 38.33 General: Alert, Oriented x3, Cooperative HEENT: Atraumatic, PERRLA, EOMI, Normocephalic Neck: Supple, No JVD, Negative Carotid Bruits Lungs: Clear to auscultation, Normal air movement Cardiovascular: Regular rate, No murmurs Abdomen: Bowel Sounds Present, Soft, Non Tender, - - incision Extremities: No edema, Capillary Refill Less than 3 Seconds Skin: No rashes, No breakdown, Incision - CDI Musculoskeletal: No Tenderness to Palpation of Joints or Extremities Neurological: Cranial nerves II-XII grossly intact Psych/Mental Status: Normal Affect, Appropriate, Anxious - at times about infant in [facility] Laboratory Results 11/15/19 12:30: WBC 9.5, RBC 3.25 L, Hgb 8.3 L, Hct 25.8 L, MCV 79.4 L, MCH 25.5 L, MCHC 32.2, RDW Std Deviation 44.5 H, RDW Coeff of Tre 15.6 H, Plt Count 211, MPV 10.6, Immature Gran % (Auto) 1.000 H, Neut % (Auto) 77.6 H, Lymph % (Auto) 13.3 L, [place] % (Auto) 6.3, Eos % (Auto) 1.6, Baso % (Auto) 0.2, Absolute Neuts (auto) 7.4, Absolute Lymphs (auto) 1.27, Nucleated RBC % 0 11/15/19 12:30: Sodium 139, Potassium 4.1, Chloride 110 H, Carbon Dioxide 24.0, Anion Gap 5, BUN 9, Creatinine 0.56, Estim Creat Clear Calc 132.61, Est GFR (MDRD) Af Amer 169, Est GFR (MDRD) Non-Af 140, BUN/Creatinine Ratio 16.0, Glucose 105, Calcium 8.7, Total Bilirubin 0.20, AST 20, ALT 11 L, Alkaline Phosphatase 153 H, Total Protein 5.9 L, Albumin 2.3 L, Globulin 3.6, Albumin/Globulin Ratio 0.6 L 11/15/19 13:20: U Random Total Protein < 6.0, Urine Creatinine 22.20 Current Medications Acetaminophen (Tylenol) 650 mg PO Q6H [facility] Last Admin: 11/16/19 03:33 Dose: 650 mg Documented by: Bisacodyl (Dulcolax) 10 mg RECTAL UD PRN PRN Reason: If no BM Dextrose (D50w Syringe) 0 gm IV X1 PRN; Protocol PRN Reason: Hypoglycemia Fluoxetine HCl (Prozac) 80 mg PO QHS [facility] Last Admin: 11/15/19 22:38 Dose: 80 mg Documented by: Glucagon () 1 mg IM .X1 PRN PRN Reason: Hypoglycemia Hydrocortisone (Hytone) 1 applic TOPICAL TID PRN PRN; Protocol PRN Reason: Discomfort Naloxone HCl 4 mg/ Dextrose 504 mls @ 0 mls/hr IV .Q0M PRN; Protocol PRN Reason: To maintain Resp. rate >10 Naloxone HCl 4 mg/ Dextrose 504 mls @ 0 mls/hr IV .Q0M PRN; Protocol PRN Reason: Respiratory depression Ibuprofen (Motrin) 600 mg PO Q6H [facility] Last Admin: 11/16/19 05:43 Dose: 600 mg Documented by: Methylergonovine Maleate (Methergine) 0.2 mg IM X1 PRN PRN Reason: Uterine Atony Naloxone HCl (Narcan) 0.02 mg IV Q1M PRN PRN Reason: RR< 10 AND PT UNRESPONSIVE Naloxone HCl (Narcan) 0.02 mg IV Q1M PRN PRN Reason: RR <10 and pt unresponsive Ondansetron HCl (Zofran) 4 mg IV Q4H PRN PRN PRN Reason: Nausea Last Admin: 11/13/19 23:20 Dose: 4 mg Documented by: Oxycodone HCl (Oxyir) 5 - 10 mg PO Q4H PRN PRN PRN Reason: Pain Score 4-10/10 Last Admin: 11/16/19 03:54 Dose: 10 mg Documented by: Prochlorperazine Edisylate (Compazine Iv) 10 mg IV Q6H PRN PRN PRN Reason: NAUSEA Senna/Docusate Sodium (Senokot-S, Ethel-Colace) 0 tablet PO DAILY [facility] Last Admin: 11/15/19 10:13 Dose: 2 tablet Documented by: Simethicone (Mylicon) 80 mg PO PCHS PRN PRN Reason: Indigestion/stomach pain Sodium Chloride () 5 - 15 ml IV UD PRN PRN Reason: SALINE FLUSH Last Admin: 11/14/19 23:32 Dose: 15 ml Documented by: Zolpidem Tartrate (Ambien (Generic)) 5 mg PO QHS PRN PRN PRN Reason: Insomnia Discharge Diet: No Restrictions Discharge Activity: May Not Drive - for 2 weeks or while taking narcotic pain meds., May Shower, May Take a Tub Bath - in 7 days. May resume sexual activity in: 4-6 weeks Additional Activity Instructions:: Nothing in the vagina for 4-6 weeks. You may return to work/school in 6 weeks. Call your doctor if your incision/area has: Continuous Slow Oozing, Sudden Increased Bleeding, Increased Pain/ Swelling, Increased Redness, Foul Smelling Discharge Call your doctor if you observe: Fever of 101 or Higher Suture Line Care: Avoid Pulling/Pushing, Avoid Pinching/Bending Remove Dressing in (days):: 5 Cleanse incision/area with: Soap & Water Home Medications: Medications to take at Discharge Fluoxetine HCl 80 mg PO DAILY 09/24/15 Pnv No.95/Ferrous Fum/Folic AC [ Caplet] 1 ea PO DAILY 11/12/19 Primary Care Physician: Masood Avila DO [Primary Care Provider] - Please Follow Up With: Tamara Fofana MD - ] When: 1 week for incision and BP check Medical Necessity - Tobacco Use Smoking Status: Never smoker Meaningful Use Info Meaningful Use Diagnoses (Choose all that apply): None applicable
[2019-11-16 07:50] VITALS: BP 141/88; PULSE 97; RESP 16; TEMP 36.8
[2019-11-16] MEDS: Senna/Docusate Sodium 1 Tablet PO (09:56)
[2019-11-16 13:20] VITALS: BP 140/90; PULSE 91; RESP 16; TEMP 36.2
== END 2019-11-16 13:45 | disposition home or self-care (01) | DRG 788 ==
PROVIDERS: Student in an Organized Health Care Education/Training Program; Admitting Provider Obstetrics & Gynecology; PCP Family Medicine; Visit Provider Obstetrics & Gynecology
DX: O62.2 Other uterine inertia (principal); O61.0 Failed medical induction of labor; O24.425 Gestational diabetes mellitus in childbirth, controlled by oral hypoglycemic drugs; O13.4 Gestational [pregnancy-induced] hypertension without significant proteinuria, complicating childbirth; O99.02 Anemia complicating childbirth; D64.9 Anemia, unspecified; O99.824 Streptococcus B carrier state complicating childbirth; O99.214 Obesity complicating childbirth; E66.01 Morbid (severe) obesity due to excess calories; O99.344 Other mental disorders complicating childbirth; F32.9 Major depressive disorder, single episode, unspecified; F41.9 Anxiety disorder, unspecified; Z3A.39 39 weeks gestation of pregnancy; Z37.0 Single live birth; Z87.820 Personal history of traumatic brain injury
CPT/HCPCS: 59025; 59050; 76815; 80053; 82570; 82962; 84156; 85025; 85027; 86850; 86900; 86901; 99218; 99251; J7120; A4216; G0378; G0463; J2405

== ENCOUNTER 2019-12-04 10:50 | Outpatient (CLI) | payer BC, SELFPAY ==
--- NOTE | 2019-12-04 12:30 | US_ITS ---
STUDY: ULTRASOUND BREAST - LEFT REASON FOR EXAM: Female, 24 years old. Painful TECHNIQUE: Axial and longitudinal images of the LEFT breast were performed with a high resolution ultrasound transducer. # OF IMAGES: 52 COMPARISON: None. FINDINGS: LEFT Breast: In the retroareolar region of the breast, there is evidence of a heterogeneous appearance of the fibroglandular tissue. This measures 1.6 cm x 3 cm. This may represent an area of mastitis. No drainable fluid collection is seen. US/Breast Limited Unilateral IMPRESSION: Focal heterogeneous appearance of the retroareolar glandular tissue of the left breast as described. This most likely represents mastitis. ASSESSMENT CATEGORY: BIRADS Category 2: Benign. A letter regarding these results will be sent to the patient by the facility within 30 days. Electronically Signed: Frank Lozano, at 12:55 EDT , Service support ,
== END 2019-12-04 12:00 | disposition home or self-care (01) ==
LOC: US 11:02 → WP 11:03
PROVIDERS: PCP Family Medicine; Referring Provider Obstetrics & Gynecology; Visit Provider Obstetrics & Gynecology
DX: N61.0 Mastitis without abscess (principal); N64.59 Other signs and symptoms in breast
CPT/HCPCS: 76642; 96158; 96159

== ENCOUNTER → 2020-01-26 09:52 | Outpatient (CLI) | payer BC, OTHER, SELFPAY ==
[2020-01-26 11:27] LABS: hCG Titer Quant., Serum < 1 mIU/mL (1-3)
== END ==
PROVIDERS: PCP Family Medicine; Visit Provider Obstetrics & Gynecology
DX: Z30.430 Encounter for insertion of intrauterine contraceptive device (principal)
CPT/HCPCS: 36415; 84702

== ENCOUNTER 2021-01-01 08:40 | Emergency (ER) | payer BC, SELFPAY ==
[2021-01-01 08:41] VITALS: BP 130/97; PULSE 113; RESP 16; TEMP 36.3; O2SAT 100; BMI 34.0
--- NOTE | 2021-01-01 08:53 | EDS_ITS ---
HPI History of Present Illness Chief Complaint: Fever Detail of Chief Complaint: Chest pain, fever, cough, and body aches Informant: patient Narrative Narrative: Patient presents to the emergency department chief complaint of fever and cough that started 2 days ago. Patient states that 3 days ago she started having some left-sided and retrosternal chest discomfort that is sharp and worse with deep breath. Pain worse with cough. He denies recent travel or surgery. No history of PE or DVT. Patient states initially the pain started after she took one of her medications and thought maybe a pill had gotten lodged in her esophagus. Patient over the last couple days developed a cough and body aches and subjective fever. She has not had the Covid vaccine. She denies sick contacts. Patient does work as a therapist. [facility] Medical History (Updated 01/01/21 @ 10:[address] Jenny Elias, DO) Depression Home Medications fluoxetine 80 mg PO QHS cap 11/16/19 [Rx Last Taken Unknown] levofloxacin 750 mg PO DAILY #4 tab 01/01/21 [Rx Last Taken Unknown] trazodone 50 mg PO QHS 01/01/21 [History Last Taken Unknown] Allergy/AdvReac Type Severity Reaction Status Date / Time No Known Allergies Allergy Verified 01/01/21 08:41 Social History (Updated 08/04/17 @ 11:25 by Tere BROWN, PA) Smoking Status: Never smoker alcohol intake: current alcohol intake frequency: a few times a week [facility] ED Constitutional Constitutional ED: Reports systems reviewed and no addt'l complaints, except as documented and fever(s); Denies body ache(s), change in weight or chills Eyes Eyes: Denies acute decrease in peripheral vision, change in vision, double vision or loss of vision ENT ENT ED: Reports none and sore throat; Denies ear pain, lip swelling, loss taste/smell, neck pain or otalgia Cardiovascular Cardiovascular: Reports none and chest pain; Denies abdominal pain, chest pain with activity, leg edema, lightheadedness, palpitations, rapid heart rate or syncope Respiratory/Chest Respiratory/Chest: Reports none and cough; Denies change in mental status, dry cough, dyspnea, hemoptysis, shortness of breath at rest or shortness of breath with exertion Gastrointestinal Gastrointestinal: Reports none; Denies abdominal pain, change in stool character, diarrhea, hematemesis, hematochezia, melena, rectal bleeding or vomiting Genitourinary Genitourinary ED: Reports none; Denies abdominal discomfort, anuria, dysuria, genital pain or polyuria Musculoskeletal Musculoskeletal: Reports none and myalgias; Denies arthralgias, back pain, difficulty walking, extremity pain or muscle weakness Integumentary Reports none; Denies abscess or rash Neurologic Neurologic: Reports none; Denies abnormal gait, confusion, focal weakness, frequent falls, headache(s), loss of vision, numbness, paresthesias, radicular pain, vertigo or weakness Psychiatric Psychiatric: Reports systems reviewed and no addt'l complaints, except as documented and none; Denies behavioral changes, confusion, difficulty concentrating, hallucinations, suicidal ideation, tactile hallucinations or visual hallucinations Endocrine Endocrinology: Denies none, cold intolerance, excessive sweating, fatigue or heat intolerance Hematologic/Lymphatic Hematologic/Lymphatic: Reports none; Denies anemia, easy bleeding or easy bruising Allergic/Immunologic Allergic/Immunologic ED: Denies as per HPI, none, lip swelling, mouth swelling, throat swelling, tongue swelling or hives EXAM Physical Exam Const Vital Signs: 01/01/21 08:41 01/01/21 09:06 Temperature 97.3 F L Temperature Source Temporal Pulse Rate 113 H Respiratory Rate 16 Respiratory Effort Short of Breath Respiratory Pattern Tachypnea Blood Pressure 130/97 H Blood Pressure Mean 108 Pulse Ox 100 Oxygen Delivery Method Room Air Positive well nourished and well developed General Appearance ED: well developed and NAD HEENT Reports TM's clear and moist mucous membranes normocephalic and atraumatic; Negative for trauma or tenderness Tympanic Membrane ED: Yes TM's clear Eyes PERRL and EOMs intact bilaterally General Eye ED: Negative for pale conjunctiva or scleral icterus Neck no lymphadenopathy, supple and no JVD General: Negative for tenderness Chest Wall inspection of chest normal and palpation of chest normal Chest: Negative for tenderness Resp normal respiratory effort and clear to auscultation bilaterally Effort and Inspection: Negative for respiratory distress or pain with movement Auscultation: Negative for rhonchi, wheezes or diminished lung sounds Cardio regular rate, regular rhythm, S1 normal heart sound, S2 normal heart sound and no murmurs Peripheral Pulses: pulses 2+ throughout GI normal to inspection, nondistended, normoactive bowel sounds, soft to palpation, non-tender, non-distended and no masses Back/Spine no CVA tenderness and no thoracic nor lumbar tenderness Extremity normal to inspection General Extremety ED: Negative for edema General Extremity: Negative for edema Neuro oriented x3, CN's II-XII intact bilaterally, no sensory deficits noted and gait normal Sensorium / Orientation: awake, alert, oriented to person, oriented to place and oriented to time Motor Exam: strength 5/5 throughout and strength abnormal Psych mental status grossly normal Skin no rashes or lesions noted and no wounds MDM MDM MDM Narrative Medical decision making narrative: IV line established on arrival. Patient denies anything for her chest pain. Initial rapid Covid test was negative. PCR test ordered and pending. Patient does have bilateral pneumonia on x-ray and CT without evidence of PE. Given her normal white count and appearance of bilateral pneumonia I suspect likely Covid as the etiology of her symptoms. Patient does not look toxic or ill otherwise. She is not hypoxic. I will cover her with Levaquin for 5 days and patient will be discharged to home with instructions to return if increasing shortness of breath or condition should worsen anyway. Patient will receive notification of her PCR test on her phone. Lab Data Attestation: I reviewed the patient's lab results. Labs: Laboratory Results - last 24 hr 01/01/21 01/01/21 01/01/21 09:14 09:14 09:14 WBC 10.6 RBC 4.76 Hgb 12.5 Hct 37.2 MCV 78.2 L MCH 26.3 L MCHC 33.6 RDW Std Deviation 40.8 RDW Coeff of Tre 14.5 Plt Count 254 MPV 9.0 Immature Gran % (Auto) 0.400 Neut % (Auto) 82.4 H Lymph % (Auto) 8.9 L [place] % (Auto) 6.5 Eos % (Auto) 1.4 Baso % (Auto) 0.4 Absolute Neuts (auto) 8.7 H Absolute Lymphs (auto) 0.94 Nucleated RBC % 0 D-Dimer Quant (PE/DVT) 0.51 H* Sodium 134 L Potassium 3.5 Chloride 103 Carbon Dioxide 23.0 Anion Gap 8 BUN 12 Creatinine 0.66 Estim Creat Clear Calc 111.54 Est GFR (MDRD) Af Amer 138 Est GFR (MDRD) Non-Af 114 BUN/Creatinine Ratio 18.0 Glucose 109 H Calcium 9.4 Troponin I High Sens < 3 L Radiography Chest X-Ray - ED: 1 View Diagnostic Testing: Clinical Impression(s) from Imaging Studies Chest X-Ray 01/01/21 09:21 IMPRESSION: Bilateral pneumonia. Electronically Signed: Mark Koehler MD at 10:38 EDT , Service support , Chest CTA 01/01/21 10:08 IMPRESSION: CTA chest examination, without a demonstrated pulmonary embolism or arterial dissection. Bilateral pneumonia. Mediastinal lymphadenopathy. Electronically Signed: Mark Koehler MD at 10:44 EDT , Service support , 1 view chest x-ray obtained interpreted by myself as bilateral infiltrates. Radiology in agreement. Discharge Plan Triage Chief Complaint: Fever ED Provider: Jenny Elias Dx/Rx/DC Orders Clinical Impression: Bilateral pneumonia, COVID-19 Instructions: ED Pneumonia (Adult), Caring for Someone Who Has COVID-19 Prescriptions: New levofloxacin 750 mg tablet 750 mg PO DAILY Qty: 4 RF: 0 No Action fluoxetine 20 MG capsule 80 mg PO QHS RF: 0 trazodone 50 mg tablet 50 mg PO QHS RF: 0 Primary Care Provider: Masood Avila Referrals: Masood Avila DO [Primary Care Provider] - 5-7 Days Disposition Disposition: Home, Self Care
[2021-01-01] MEDS: 0.9% Normal Saline 1,000 ML 150 ML IV (09:12)
[2021-01-01 09:19] LABS: Absolute Lymphocyte Count 0.94 X10^3/uL (0.83-4.51); Absolute Neutrophil Count 8.7 X10^3/uL (2.0-7.7); Basophil# 0.04 X10^3/uL; Basophil% 0.4 % (0-1); Eosinophil# 0.15 X10^3/uL; Eosinophils% 1.4 % (0-5); Hematocrit 37.2 % (37-47); Hemoglobin 12.5 g/dL (12.0-15.0); Lymphocyte # 0.94 X10^3/ul (0.83-4.51); Lymphocyte % 8.9 % (19-41); Mean Corp Hgb Conc 33.6 g/dL (32-36); Mean Corpuscular Hgb 26.3 pg (27.0-32.0); Mean Corpuscular Volume 78.2 fL (81-99); Monocyte# 0.69 X10^3/uL; Monocyte% 6.5 % (0-10); NRBC Flagged by Analyzer 0 % (0-5); Neutrophil # 8.73 X10^3/uL (2.7-7.7); Neutrophil % 82.4 % (47-70); Platelet Count 254 K/mm3 (150-450); RBC Distribution Width CV 14.5 % (11.6-14.6); RBC Distribution Width SD 40.8 fl (35.1-43.9); Red Blood Count 4.76 M/mm3 (4.2-5.4); White Blood Count 10.6 K/mm3 (4.4-11.0)
--- NOTE | 2021-01-01 09:21 | RAD_ITS ---
STUDY: X-RAY CHEST REASON FOR EXAM: Female, 25 years old. Chest pain TECHNIQUE: Single AP portable view of the chest. COMPARISON: May 16, 2018 FINDINGS: There are monitoring devices. There are patchy bilateral interstitial and airspace opacities of the lungs. There is no demonstrated pleural abnormality. Normal size heart. Normal mediastinum and rosalio. Normal visualized pulmonary arteries. Normal visualized aortic arch and descending thoracic aorta. Normal visualized thoracic spine. Normal visualized ribs, clavicles, and shoulders. There is no demonstrated abnormality of the visualized soft tissue structures of the upper abdomen. RAD/Chest 1 View (Portable) IMPRESSION: Bilateral pneumonia. Electronically Signed: Mark Koehler MD at 10:38 EDT , Service support ,
[2021-01-01 09:36] LABS: Anion Gap 8 (5-15); BUN 12 mg/dL (7-18); Calcium,Total 9.4 mg/dL (8.5-10.1); Chloride 103 mmol/L (98-107); Creatinine, Serum 0.66 mg/dL (0.55-1.02); EST Glomerular Filtration Rate 114 mL/min (>60); Est Glom Filt Rate - Afr Amer 138 mL/min (>60); Estimated Creatinine Clearance 111.54 ml/min; Glucose 109 mg/dL (74-106); Potassium 3.5 mmol/L (3.5-5.1); Sodium Level 134 mmol/L (136-145); Troponin-I HS < 3 pg/mL (3.0-54.0)
[2021-01-01 09:54] LABS: D-Dimer Quantitative (DVT/PE) 0.51 FEU/ug/m (0.27-0.49)
--- NOTE | 2021-01-01 10:08 | CT_ITS ---
STUDY: CTA CHEST REASON FOR EXAM: Female, 25 years old. Chest pain RADIATION DOSAGE (If Supplied By Facility): CTDIvol = ( 9.90 ) mGy, DLP = ( 459.50 ) mGycm TECHNIQUE: The examination was performed with the intravenous administration of 100mL Isovue-370. Post-processing of the angiographic images was performed, with multiplanar reformation and 3D reconstruction. Individualized dose optimization techniques were used for this CT. COMPARISON: Chest x-ray. FINDINGS: Normal enhancement of the main pulmonary artery and right and left pulmonary arteries. Normal enhancement of the bilateral peripheral pulmonary arteries. There is no demonstrated pulmonary embolism. Normal thoracic aorta and visualized great vessels. There is no demonstrated aortic dissection. Normal heart and pericardium. There is mediastinal lymphadenopathy. Anterior mediastinal and paratracheal nodes measure 2.0 cm. Subcarinal node measures 4.5 cm. Normal hilar regions. Normal visualized trachea and bronchi. The lungs are well expanded. There are moderate patchy groundglass and airspace opacities of the mid and lower lungs. Normal pleura. Normal chest wall structures. Normal osseous structures. Normal visualized upper abdomen. CT/CTA Chest W/WO Contrast IMPRESSION: CTA chest examination, without a demonstrated pulmonary embolism or arterial dissection. Bilateral pneumonia. Mediastinal lymphadenopathy. Electronically Signed: Mark Koehler MD at 10:44 EDT , Service support ,
[2021-01-01] MEDS: LORazepam 2 MG/ML Syringe 1 MG IV (10:48)
[2021-01-01 10:56] VITALS: BP 111/64; PULSE 104; RESP 18; O2SAT 96
[2021-01-01] MEDS: levoFLOXacin 750 MG Tablet PO (11:19)
== END 2021-01-01 11:30 | disposition home or self-care (01) ==
PROVIDERS: Emergency Provider Emergency Medicine; PCP Family Medicine
DX: J18.9 Pneumonia, unspecified organism (principal)
CPT/HCPCS: 71045; 71275; 80048; 84484; 85025; 85379; 87426; 87635; 96361; 96374; 99285; J7030; Q9967; U0005; A4216; U0003

== ENCOUNTER 2021-01-18 15:50 | Emergency (ER) | payer BC, SELFPAY ==
[2021-01-18 15:51] VITALS: BP 111/73; PULSE 112; RESP 18; TEMP 36.4; O2SAT 97; BMI 33.5
--- NOTE | 2021-01-18 16:06 | RAD_ITS ---
STUDY: X-RAY CHEST REASON FOR EXAM: Female, 25 years old. cough TECHNIQUE: AP portable COMPARISON: 01/01/2021 FINDINGS: Mild reticulonodular interstitial infiltrates in the lower lobes slightly more advanced on the right.. There is no demonstrated pleural abnormality. Normal size heart. Normal mediastinum and rosalio. Normal visualized pulmonary arteries. Normal visualized aortic arch and descending thoracic aorta. Normal visualized thoracic spine. Normal visualized ribs, clavicles, and shoulders. There is no demonstrated abnormality of the visualized soft tissue structures of the upper abdomen.. There is improved aeration noted when compared with previous exam. RAD/Chest 1 View (Portable) IMPRESSION: Persistent mild bilateral lower lobe interstitial infiltrates with interval improvement since previous study. Electronically Signed: Storm Sims MD at 16:54 EDT , Service support ,
--- NOTE | 2021-01-18 16:08 | ED.VIS.DYS ---
HPI History of Present Illness Chief Complaint: Cough Informant: patient Narrative Narrative: Patient sent in here by PCP office for evaluation recurrent cough with sputum and fever over the past 2 days. Patient was seen here January 01 concerning Covid symptoms. She was not vaccinated. She had findings of pneumonia on x-ray and CAT scan. There is no PE. She is placed on Levaquin for 5 days she states symptoms are improving however on follow-up with her PCP 9 days ago, symptoms returned. She is put on another round of Levaquin along with steroids. States was improving again 2 days ago symptoms worsened again. Denies tobacco history. States had a fever of 104.9 forehead an hour prior to arrival. No medications taken. Denies urinary symptoms. Denies vomiting or diarrhea. Denies recent travel, surgeries, or immobilizations. No history of PE or DVT. Evaluation records noted she had negative rapid, PCR was sent also returned negative. CT scan confirming bilateral pneumonia. She is not vaccinated with Covid. Denied any changes in taste or smell. Denied any progression of symptoms however stating recurrent symptoms. Prior similar symptoms: Yes PFSH [facility] Medical History Depression Home Medications fluoxetine 80 mg PO QHS cap 11/16/19 [Rx Last Taken Unknown] levofloxacin 750 mg PO DAILY #4 tab 01/01/21 [Rx Last Taken Unknown] trazodone 50 mg PO QHS 01/01/21 [History Last Taken Unknown] benzonatate 200 mg PO TID PRN PRN #20 cap 01/18/21 [Rx Last Taken Unknown] Allergy/AdvReac Type Severity Reaction Status Date / Time No Known Allergies Allergy Verified 01/18/21 15:50 Social History Smoking Status: Never smoker alcohol intake: current alcohol intake frequency: a few times a week [facility] ED Constitutional Constitutional ED: Reports fever(s); Denies chills or sweats Eyes Eyes: Denies change in vision ENT ENT ED: Denies dysphagia or sore throat Cardiovascular Cardiovascular: Denies chest pain, leg edema, palpitations or racing heartbeat Respiratory/Chest Respiratory/Chest: Reports cough and dyspnea; Denies dyspnea on exertion Gastrointestinal Gastrointestinal: Denies abdominal pain, diarrhea, nausea or vomiting Genitourinary Genitourinary ED: Denies dysuria, hematuria or urinary frequency Musculoskeletal Musculoskeletal: Denies back pain, extremity pain or neck pain Integumentary Denies rash or wounds Neurologic Neurologic: Denies headache(s), paresthesias or weakness EXAM Physical Exam Const Vital Signs: 01/18/21 15:51 01/18/21 16:32 01/18/21 16:35 Temperature 97.5 F L 97.5 F L Temperature Source Temporal Temporal Pulse Rate 112 H 108 H Respiratory Rate 18 18 Respiratory Effort Normal Non-Labored Respiratory Depth Normal Respiratory Pattern Normal Blood Pressure 111/73 116/52 L Blood Pressure Mean 85 73 Pulse Ox 97 97 Oxygen Delivery Method Room Air Room Air Room Air 01/18/21 17:54 Temperature Temperature Source Pulse Rate 102 H Respiratory Rate Respiratory Effort Respiratory Depth Respiratory Pattern Blood Pressure 111/65 Blood Pressure Mean 80 Pulse Ox 97 Oxygen Delivery Method Room Air Positive well nourished and well developed General Appearance ED: well developed and NAD HEENT Reports dry mucous membranes normocephalic and atraumatic Mouth ED: Yes dry mucous membranes Mouth: dry mucous membranes Eyes PERRL, EOMs intact bilaterally and conjunctivae normal General Eye ED: Yes normal appearance of both eyes Neck no lymphadenopathy and supple General: Negative for tenderness Chest Wall Chest: Negative for tenderness Resp normal respiratory effort and normal air movement Effort and Inspection: symmetric chest movement; Negative for respiratory distress Cardio regular rhythm and no murmurs Rate: tachycardic Peripheral Pulses: pulses 2+ throughout GI normal to inspection, nondistended, normoactive bowel sounds and non-tender Palpation: Negative for guarding or rebound tenderness present Back/Spine no CVA tenderness and no thoracic nor lumbar tenderness Extremity normal to inspection General Extremety ED: Negative for edema or tenderness General Extremity: Negative for edema Neuro oriented x3 and no sensory deficits noted Sensorium / Orientation: awake and alert Skin no rashes or lesions noted and no wounds MDM MDM MDM Narrative Medical decision making narrative: Patient presents tachycardic pulse ox 97% she has dry mucosal membranes. IV fluids were given heart rate on recheck was in the 90s. Recurrent cough sputum and subjective fevers. Afebrile in the ED did not take any antipyretics. Labs white count is normal at 5.2. Creatinine is normal. Covid testing negative. Chest x-ray notes improving pneumonia from previous. Patient had negative PCR on her last visit for Covid. Included additional testing today that is negative, lower suspicion for Covid. Suspect more of a viral process but may be lingering with recurrent symptoms. I did send for respiratory panel. Patient has CT scan of her chest to rule out PE on her last visit. She is not hypoxic, discussed with patient lower suspicion of this and discussed with patient reimaging with CT at this time will likely increase radiation exposure and be of no benefit especially she is in no respiratory distress or hypoxic. She understands and agrees at this time. Discussed adjunct treatment for cough with vapor rubs and honey with drinks. Tessalon Perles were written to her pharmacy she will continue oral hydration at home. Return precautions were discussed with the patient. She understands and agrees with plan. All questions were answered. Lab Data Attestation: I reviewed the patient's lab results. Labs: Laboratory Results - last 24 hr 01/18/21 01/18/21 01/18/21 16:19 16:19 16:19 WBC 5.2 RBC 4.32 Hgb 11.2 L Hct 33.4 L MCV 77.3 L MCH 25.9 L MCHC 33.5 RDW Std Deviation 40.8 RDW Coeff of Tre 14.6 Plt Count 227 MPV 9.1 Immature Gran % (Auto) 0.400 Neut % (Auto) 62.3 Lymph % (Auto) 16.5 L [place] % (Auto) 9.3 Eos % (Auto) 10.9 H Baso % (Auto) 0.6 Absolute Neuts (auto) 3.2 Absolute Lymphs (auto) 0.85 Nucleated RBC % 0 Sodium 136 Potassium 3.2 L Chloride 105 Carbon Dioxide 26.0 Anion Gap 5 BUN 5 L Creatinine 0.68 Estim Creat Clear Calc 108.26 Est GFR (MDRD) Af Amer 135 Est GFR (MDRD) Non-Af 112 BUN/Creatinine Ratio 7.4 L Glucose 109 H Calcium 9.0 Total Bilirubin 0.50 AST 15 ALT 21 Alkaline Phosphatase 117 Total Protein 7.2 Albumin 3.1 L Globulin 4.1 Albumin/Globulin Ratio 0.8 L Serum , Qual NEGATIVE Radiography Chest X-Ray - ED: 1 View, Read by ED Physician and Read by Radiologist Diagnostic Testing: Clinical Impression(s) from Imaging Studies Chest X-Ray 01/18/21 16:06 IMPRESSION: Persistent mild bilateral lower lobe interstitial infiltrates with interval improvement since previous study. Electronically Signed: Storm Sims MD at 16:54 EDT , Service support , Discharge Plan Triage Chief Complaint: Cough ED Provider: Edmond Russo Dx/Rx/DC Orders Clinical Impression: Bronchitis, Dyspnea Instructions: ED Bronchitis, No Antibiotic (Adult) Prescriptions: New benzonatate [benzonatate] 100 MG capsule 200 mg PO TID PRN PRN (Reason: Cough) Qty: 20 RF: 0 No Action fluoxetine 20 MG capsule 80 mg PO QHS RF: 0 trazodone 50 mg tablet 50 mg PO QHS RF: 0 levofloxacin 750 mg tablet 750 mg PO DAILY Qty: 4 RF: 0 Primary Care Provider: Masood Avila Referrals: Masood Avila DO [Primary Care Provider] - 3-5 Days if not improving Activity Restrictions/Additional Instructions: Covid testing negative. Chest x-ray noting improving pneumonia findings from previous. Labs are stable. Respiratory panel sent and pending. Suspect more viral process. If worsening respiratory symptoms return to the emergency room for reevaluation. Disposition Disposition: Home, Self Care Discharge Date/Time: 01/18/21 18:25
[2021-01-18 16:31] LABS: Absolute Lymphocyte Count 0.85 X10^3/uL (0.83-4.51); Absolute Neutrophil Count 3.2 X10^3/uL (2.0-7.7); Basophil# 0.03 X10^3/uL; Basophil% 0.6 % (0-1); Eosinophil# 0.56 X10^3/uL; Eosinophils% 10.9 % (0-5); Hematocrit 33.4 % (37-47); Hemoglobin 11.2 g/dL (12.0-15.0); Lymphocyte # 0.85 X10^3/ul (0.83-4.51); Lymphocyte % 16.5 % (19-41); Mean Corp Hgb Conc 33.5 g/dL (32-36); Mean Corpuscular Hgb 25.9 pg (27.0-32.0); Mean Corpuscular Volume 77.3 fL (81-99); Mean Platelet Vol. 9.1 fl (6.2-12.0); Monocyte# 0.48 X10^3/uL; Monocyte% 9.3 % (0-10); NRBC Flagged by Analyzer 0 % (0-5); Neutrophil # 3.22 X10^3/uL (2.7-7.7); Neutrophil % 62.3 % (47-70); Platelet Count 227 K/mm3 (150-450); RBC Distribution Width CV 14.6 % (11.6-14.6); RBC Distribution Width SD 40.8 fl (35.1-43.9); Red Blood Count 4.32 M/mm3 (4.2-5.4); White Blood Count 5.2 K/mm3 (4.4-11.0)
[2021-01-18 16:32] VITALS: BP 116/52; PULSE 108; RESP 18; TEMP 36.4; O2SAT 97
[2021-01-18] MEDS: 0.9% Normal Saline 1,000 ML 1000 ML IV (16:37)
[2021-01-18 16:49] LABS: ALB/GLOB Ratio 0.8 RATIO (0.9-2.4); AST(SGOT) 15 U/L (15-37); Alanine Aminotransfer ALT/SGPT 21 U/L (13-56); Albumin, Serum 3.1 g/dL (3.2-5.0); Alkaline Phosphatase 117 U/L (45-117); Anion Gap 5 (5-15); BUN 5 mg/dL (7-18); BUN/Creat Ratio 7.4 RATIO (10-20); Chloride 105 mmol/L (98-107); Creatinine, Serum 0.68 mg/dL (0.55-1.02); EST Glomerular Filtration Rate 112 mL/min (>60); Est Glom Filt Rate - Afr Amer 135 mL/min (>60); Estimated Creatinine Clearance 108.26 ml/min; Globulin 4.1 g/dL (2.2-4.2); Glucose 109 mg/dL (74-106); Potassium 3.2 mmol/L (3.5-5.1); Protein, Total 7.2 g/dL (6.4-8.2); Sodium Level 136 mmol/L (136-145)
[2021-01-18 17:14] LABS: Internal QC Validated? YES +Cl - CLEAR BKGD; Pregnancy, Serum, hCG Quali. NEGATIVE Negative
[2021-01-18 17:54] VITALS: BP 111/65; PULSE 102; O2SAT 97
== END 2021-01-18 18:25 | disposition home or self-care (01) ==
PROVIDERS: Emergency Provider Emergency Medicine; PCP Family Medicine
DX: J40 Bronchitis, not specified as acute or chronic (principal)
CPT/HCPCS: 71045; 80053; 84703; 85025; 87426; 87633; 96360; 99283; J7030

== ENCOUNTER 2021-12-17 03:48 | Emergency (ER) | payer BC, SELFPAY ==
[2021-12-17 03:50] VITALS: BP 129/68; PULSE 80; RESP 14; TEMP 36.8; O2SAT 99; BMI 34.0
--- NOTE | 2021-12-17 04:07 | EDS_ITS ---
HPI History of Present Illness Chief Complaint: Chest Pain Informant: patient Onset/Context/Timing Onset: Hours (4 hours) Activity at onset: sudden Timing: Continuous Quality: Positive for Sharp Location: Left Parasternal Current Severity: Moderate Maximum Severity: Severe Worsened By: Movement of Torso, Palpation and Breathing Narrative Narrative: Patient presents with 4 hours of left-sided chest pain. She points to the upper left sternal border and describing her area of pain. 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 She not been carrying heavy trays or anything significantly exertional. She does report increased pain with deep breath and feeling short of breath. She feels that the pain goes down her left arm. Prior Similar Symptoms: No PFSH PFSH Medical History Anxiety Depression Non-smoker Home Medications fluoxetine 20 mg capsule 80 mg PO QHS 11/16/19 [Rx Last Taken Unknown] trazodone 50 mg tablet 50 mg PO QHS 01/01/21 [History Last Taken Unknown] naproxen 500 mg tablet (Naprosyn) 500 mg PO BID PRN pain #20 tabs 12/17/21 [Rx Last Taken Unknown] Allergy/AdvReac Type Severity Reaction Status Date / Time No Known Allergies Allergy Verified 01/18/21 15:50 Social History Smoking Status: Never smoker alcohol intake: current alcohol intake frequency: a few times a week ROS ROS ED Constitutional Constitutional ED: Denies chills or fever(s) Eyes Eyes: Denies change in vision or discharge from eye(s) ENT ENT ED: Denies discharge from eye(s), rhinorrhea or sore throat Cardiovascular Cardiovascular: Reports chest pain; Denies palpitations Respiratory/Chest Respiratory/Chest: Reports dyspnea; Denies cough Gastrointestinal Gastrointestinal: Denies abdominal pain, diarrhea, nausea or vomiting Genitourinary Genitourinary ED: Denies dysuria Musculoskeletal Musculoskeletal: Denies back pain or extremity pain Integumentary Denies Abrasions or rash Neurologic Neurologic: Denies headache(s) or weakness Psychiatric Psychiatric: Reports anxiety Allergic/Immunologic Allergic/Immunologic ED: Denies lip swelling or urticaria EXAM Physical Exam Const Vital Signs: 12/17/21 03:50 12/17/21 03:59 Temperature 98.2 F Temperature Source Oral Pulse Rate 80 Respiratory Rate 14 Respiratory Effort Normal Blood Pressure 129/68 H Blood Pressure Mean 88 Pulse Ox 99 Oxygen Delivery Method Room Air Positive well nourished and well developed General Appearance ED: well developed HEENT Reports normocephalic and head/scalp atraumatic Eyes PERRL and EOMs intact bilaterally Neck supple Chest Wall inspection of chest normal Chest Narrative: Reproducible chest wall tenderness along the left upper sternal border. No crepitus. Resp normal respiratory effort and clear to auscultation bilaterally Cardio regular rate and regular rhythm GI normal to inspection, nondistended, normoactive bowel sounds Palpation: soft Extremity normal to inspection Neuro oriented x3 and no sensory deficits noted Sensorium / Orientation: alert Motor Exam: strength 5/5 throughout Psych mental status grossly normal Skin no rashes or lesions noted Heart Score History: Slightly/Non-Suspicious ECG: Normal Age: </= 45 years Risk Factors: No Risk Factors Troponin: </= Normal Limit Score: 0 MDM MDM MDM Narrative Medical decision making narrative: Patient was given Toradol, morphine, Zofran, IV fluids. Lab work, EKG, chest x- ray obtained. Lab Data Attestation: I reviewed the patient's lab results. Labs: Laboratory Results - last 24 hr 12/17/21 12/17/21 12/17/21 04:30 04:30 04:30 WBC 9.9 RBC 4.53 Hgb 12.8 Hct 37.9 MCV 83.7 MCH 28.3 MCHC 33.8 RDW Std Deviation 41.4 RDW Coeff of Tre 13.6 Plt Count 225 MPV 9.1 Immature Gran % (Auto) 0.300 Neut % (Auto) 61.8 Lymph % (Auto) 26.1 [place] % (Auto) 9.0 Eos % (Auto) 2.5 Baso % (Auto) 0.3 Absolute Neuts (auto) 6.1 Absolute Lymphs (auto) 2.59 Nucleated RBC % 0 D-Dimer Quant (PE/DVT) Cancelled Sodium 134 L Potassium 4.4 Chloride 106 Carbon Dioxide 19.0 L Anion Gap 9 BUN 14 Creatinine 0.61 Estim Creat Clear Calc 119.63 Est GFR (MDRD) Af Amer 151 Est GFR (MDRD) Non-Af 125 BUN/Creatinine Ratio 23.0 H Glucose 91 Calcium 9.3 Troponin I High Sens < 3 L Serum , Qual 12/17/21 12/17/21 12/17/21 04:30 05:04 06:58 WBC RBC Hgb Hct MCV MCH MCHC RDW Std Deviation RDW Coeff of Tre Plt Count MPV Immature Gran % (Auto) Neut % (Auto) Lymph % (Auto) [place] % (Auto) Eos % (Auto) Baso % (Auto) Absolute Neuts (auto) Absolute Lymphs (auto) Nucleated RBC % D-Dimer Quant (PE/DVT) 0.41 Sodium Potassium Chloride Carbon Dioxide Anion Gap BUN Creatinine Estim Creat Clear Calc Est GFR (MDRD) Af Amer Est GFR (MDRD) Non-Af BUN/Creatinine Ratio Glucose Calcium Troponin I High Sens 3 Serum , Qual NEGATIVE Radiography Chest X-Ray - ED: 1 View, Read by ED Physician and - (Bilateral haziness but no focal infiltrate. Normal cardiac silhouette.) Diagnostic Testing: Clinical Impression(s) from Imaging Studies Chest X-Ray 12/17/21 04:45 IMPRESSION: Bilateral scattered hazy opacities, suspicious for infectious changes. Electronically Signed: Rigoberto Tatum MD at 5:08 EDT , EKG Initial EKG: Attestation: I personally reviewed and interpreted this EKG as follows: Interpretation: Sinus Rhythm (Sinus at 76 with no acute ischemia) Treatment and Re-Evaluation Narrative: CBC was normal white count and normal differential. Chemistry studies unremarkable. Initial troponin less than 3. D-dimer is normal at 0.41. test is negative. COVID test is negative. Repeat troponin is 3. On repeat evaluation patient does have some improvement in her symptoms. Test results are discussed with her. She has had recent URI symptoms and advised her she may have some inflammation of the cartilage along the border of the sternum, but I do not see any evidence of pneumonia, blood clot, or cardiac disease. She will be written for naproxen. Return instructions provided. Discharge Plan Triage Chief Complaint: Chest Pain ED Provider: Cassie Irivng Dx/Rx/DC Orders Clinical Impression: Chest wall pain Instructions: ED Chest Pain, Noncardiac Prescriptions: New naproxen [Naprosyn] 500 mg tablet 500 mg PO BID PRN (Reason: pain) Qty: 20 0RF No Action fluoxetine 20 MG capsule 80 mg PO QHS 0RF trazodone 50 mg tablet 50 mg PO QHS Primary Care Provider: Masood Avila Referrals: Masood Avila DO [Primary Care Provider] - 1 Week Disposition Disposition: Home, Self Care
[2021-12-17] MEDS: 0.9% Normal Saline 1,000 ML 150 ML IV (04:20)
[2021-12-17] MEDS: Morphine 4 MG/ML Syringe IV (04:29)
[2021-12-17] MEDS: Ketorolac 30 MG/ML Syringe IV (04:32)
[2021-12-17] MEDS: Ondansetron 4 MG/2 ML Vial IV (04:33)
[2021-12-17 04:40] LABS: Absolute Lymphocyte Count 2.59 X10^3/uL (0.83-4.51); Absolute Neutrophil Count 6.1 X10^3/uL (2.0-7.7); Basophil# 0.03 X10^3/uL; Basophil% 0.3 % (0-1); Eosinophil# 0.25 X10^3/uL; Eosinophils% 2.5 % (0-5); Hematocrit 37.9 % (37-47); Hemoglobin 12.8 g/dL (12.0-15.0); Lymphocyte # 2.59 X10^3/ul (0.83-4.51); Lymphocyte % 26.1 % (19-41); Mean Corp Hgb Conc 33.8 g/dL (32-36); Mean Corpuscular Hgb 28.3 pg (27.0-32.0); Mean Corpuscular Volume 83.7 fL (81-99); Mean Platelet Vol. 9.1 fl (6.2-12.0); Monocyte# 0.89 X10^3/uL; NRBC Flagged by Analyzer 0 % (0-5); Neutrophil # 6.12 X10^3/uL (2.7-7.7); Neutrophil % 61.8 % (47-70); Platelet Count 225 K/mm3 (150-450); RBC Distribution Width CV 13.6 % (11.6-14.6); RBC Distribution Width SD 41.4 fl (35.1-43.9); Red Blood Count 4.53 M/mm3 (4.2-5.4); White Blood Count 9.9 K/mm3 (4.4-11.0)
--- NOTE | 2021-12-17 04:45 | RAD_ITS ---
INDICATION: cp EXAMINATION/TECHNIQUE: X-RAY - XR Chest 1 View COMPARISON: 01/18/2021 FINDINGS: LINES/DEVICES: None. LUNGS: Bilateral scattered hazy opacities with mid to lower lung predominance. No pleural effusion or pneumothorax. MEDIASTINUM AND CARDIOVASCULAR STRUCTURES: Cardiac silhouette not enlarged. Central airways and mediastinal contour are unremarkable. BONES AND SOFT TISSUES: Unremarkable. RAD/Chest 1 View (Portable) IMPRESSION: Bilateral scattered hazy opacities, suspicious for infectious changes. Electronically Signed: Rigoberto Tatum MD at 5:08 EDT ,
[2021-12-17 04:54] LABS: Internal QC Validated? YES +Cl - CLEAR BKGD; Pregnancy, Serum, hCG Quali. NEGATIVE Negative
[2021-12-17 05:04] LABS: Anion Gap 9 (5-15); BUN 14 mg/dL (7-18); Calcium,Total 9.3 mg/dL (8.5-10.1); Chloride 106 mmol/L (98-107); Creatinine, Serum 0.61 mg/dL (0.55-1.02); EST Glomerular Filtration Rate 125 mL/min (>60); Est Glom Filt Rate - Afr Amer 151 mL/min (>60); Estimated Creatinine Clearance 119.63 ml/min; Glucose 91 mg/dL (74-106); Potassium 4.4 mmol/L (3.5-5.1); Sodium Level 134 mmol/L (136-145); Troponin-I HS (w/2H Reflex) < 3 pg/mL (3.0-54.0)
[2021-12-17 05:32] LABS: D-Dimer Quantitative (DVT/PE) 0.41 FEU/ug/m (0.27-0.49)
[2021-12-17 06:34] LABS: Reflex Troponin-HS? (from REC) Y
[2021-12-17 07:27] LABS: Troponin-I HS 3 pg/mL (3.0-54.0)
[2021-12-17 07:57] VITALS: BP 97/55; PULSE 72; RESP 14; O2SAT 98
== END 2021-12-17 07:58 | disposition home or self-care (01) ==
PROVIDERS: Emergency Provider Emergency Medicine; PCP Family Medicine; Visit Provider Emergency Medicine
DX: R07.89 Other chest pain (principal)
CPT/HCPCS: 71045; 80048; 84484; 84703; 85025; 85379; 87811; 93005; 96361; 96374; 96375; 99284; J7030; A4216; J2405

== ENCOUNTER → 2022-11-08 | Outpatient (CLI) | payer BC, SELFPAY ==
[2022-11-08 16:12] LABS: Basophil# 0.04 X10^3/uL; Basophil% 0.4 % (0-1); Eosinophil# 0.16 X10^3/uL; Eosinophils% 1.6 % (0-5); Hematocrit 34.9 % (37-47); Hemoglobin 12.2 g/dL (12.0-15.0); Lymphocyte % 17.5 % (19-41); Mean Corpuscular Hgb 28.5 pg (27.0-32.0); Mean Corpuscular Volume 81.5 fL (81-99); Monocyte# 0.79 X10^3/uL; Monocyte% 8.1 % (0-10); NRBC Flagged by Analyzer 0 % (0-5); Neutrophil # 6.97 X10^3/uL (2.7-7.7); Platelet Count 223 K/mm3 (150-450); RBC Distribution Width CV 14.5 % (11.6-14.6); RBC Distribution Width SD 42.2 fl (35.1-43.9); Red Blood Count 4.28 M/mm3 (4.2-5.4); White Blood Count 9.7 K/mm3 (4.4-11.0)
[2022-11-08 17:27] LABS: HIV - WCH Non-Reactive (Nonreactive); Hepatitis B Surface Antigen Non-Reactive (Nonreactive); Hepatitis C Antibody Non-Reactive (Nonreactive); Rubella IgG Reactive (Nonreactive); Syphilis Antibodies Non-reactive
[2022-11-10 07:07] LABS: V-Zoster IgG (Immunity) > 4000 index (Immune >165)
[2022-11-14 22:09] LABS: HPV Reflexed? NOT INDICATED
== END | disposition home or self-care (01) ==
LOC: WOBLAB 15:26
PROVIDERS: PCP Family Medicine; Visit Provider Obstetrics & Gynecology
DX: Z34.81 Encounter for supervision of other normal pregnancy, first trimester (principal)
CPT/HCPCS: 36415; 85025; 86703; 86762; 86780; 86787; 86803; 87086; 87088; 87340; 88175; G0145

== ENCOUNTER 2023-05-27 09:43 | Inpatient (IN) | payer BC, SELFPAY ==
[2023-05-27] VITALS (16 sets, daily range): BP systolic 117–138; BP diastolic 46–90; PULSE 73–93; RESP 14–19; TEMP 36.2–37; O2SAT 95–100; BMI 36.2
[2023-05-27] MEDS: Lactated Ringers 1,000 ML 999 ML IV (10:30)
[2023-05-27] MEDS: Acetaminophen 500 MG Tablet 1000 MG PO ×3 (10:31→22:24)
[2023-05-27 10:44] LABS: Absolute Lymphocyte Count 1.47 X10^3/uL (0.83-4.51); Absolute Neutrophil Count 6.6 X10^3/uL (2.0-7.7); Basophil# 0.04 X10^3/uL; Basophil% 0.5 % (0-1); Eosinophil# 0.13 X10^3/uL; Eosinophils% 1.5 % (0-5); Hematocrit 34.2 % (37-47); Lymphocyte # 1.47 X10^3/ul (0.83-4.51); Lymphocyte % 16.7 % (19-41); Mean Corp Hgb Conc 32.2 g/dL (32-36); Mean Corpuscular Hgb 25.7 pg (27.0-32.0); Mean Corpuscular Volume 79.9 fL (81-99); Mean Platelet Vol. 10.4 fl (6.2-12.0); Monocyte# 0.54 X10^3/uL; Monocyte% 6.1 % (0-10); NRBC Flagged by Analyzer 0 % (0-5); Neutrophil # 6.55 X10^3/uL (2.7-7.7); Neutrophil % 74.4 % (47-70); Platelet Count 225 K/mm3 (150-450); RBC Distribution Width CV 14.1 % (11.6-14.6); RBC Distribution Width SD 40.2 fl (35.1-43.9); Red Blood Count 4.28 M/mm3 (4.2-5.4); White Blood Count 8.8 K/mm3 (4.4-11.0)
[2023-05-27 11:08] LABS: Syphilis Antibodies Non-reactive
[2023-05-27] MEDS: Lactated Ringers 1,000 ML 150 ML IV (11:24)
[2023-05-27] MEDS: Sodium Citrate/Citric Acid 30 ML UDC PO (11:53)
--- NOTE | 2023-05-27 11:58 | PCM.HP.BLA ---
History and Physical Date of Admission: 05/27/23 PROBLEM: repeat C/S ? DIAGNOSIS: repeat C/S ? PAST SURGICAL HISTORY: PAST SURGICAL HISTORYExpand by Default PAST SURGICAL HISTORY Procedure Laterality Date ? SECTION HX ? PAST MEDICAL HISTORY: PAST MEDICAL HISTORYExpand by Default PAST MEDICAL HISTORY Diagnosis Date ? Depression with anxiety ? ? Gestational diabetes ? ? MRSA infection 2015 ? Abscess ? ? SUBJECTIVE: pt doing well and offers no complaints ? SOCIAL HISTORY: SOCIAL HISTORYExpand by Default Social History ? Tobacco Use ? Smoking status: Never ? Smokeless tobacco: Never Vaping Use ? Vaping Use: Never used Substance Use Topics ? Alcohol use: Not Currently ? Drug use: Never ? ? ALLERGIESExpand by Default ALLERGIES No Known Allergies ? Current Outpatient Medications on File Prior to Visit Medication Sig ? FLUoxetine (PROZAC) 40 mg capsule Take 40 mg by mouth once daily. ? ondansetron (ZOFRAN) 4 mg tablet Take 1 tablet by mouth every 8 hours as needed for nausea/vomiting. ? ondansetron HCl (ZOFRAN ORAL) Take by mouth. ? PNV no.95/ferrous fum/folic ac ( ORAL) Take by mouth. ? No current facility-administered medications on file prior to visit. ? OBJECTIVE: ? VITALS: BP 110/64 Wt 207 lb (93.9 kg) LMP 09/04/2022 BMI 35.53 kg/m? ? HEENT: Normocephalic, atraumatic, Mucus membranes moist without lesions. ? NECK: Soft and Supple. No adenopathy , thyromegaly or bruits. ? SKIN: No lesions. ? CHEST: No increased resp effort. ? HEART: Regular rate. ? BACK: Nontender with no CVA tenderness. ? ABDOMEN: Soft, non-tender, non-distended, no masses, no hepatosplenomegaly. ? LOWER EXTREMITIES: There was no pitting edema, no palpable cords and no skin changes. ? ? ? ASSESSMENT: pre op, repeat C/S ? PLAN: 1) Discussed repeat section in detail. The rationale for the proposed surgery was discussed in addition to risks, benefits, and alternatives. General pre- and post-operative care was reviewed. Questions were answered. After discussion, the patient indicated a desire to proceed with the planned surgery. Assessment & Plan Assessment/Plan (1) 39 weeks gestation of : PLAN: Presents for scheduled repeat section. Discussed r/b/a section with patient and she desires to proceed.
[2023-05-27] MEDS: Cefazolin 2 GM in 0.9% Normal Saline (100mL Bag) 100 ML IV (12:12)
--- NOTE | 2023-05-27 13:59 | PCM.OPRPT ---
Problems Associated Problem List Diagnoses (1) 39 weeks gestation of : Report of Operation Date of Procedure: 05/27/23 Pre-Operative Diagnosis: 39 week gestation, history prior section Post-Operative Diagnosis: As above Surgery/Procedure Performed:: RLTCS via pfannenstiel incision Description of Surgical Findings:: Moderate adhesive disease. The fascia was adhered to the rectus muscles. The rectus muscles were adhered in the midline. The bladder was adhered to the anterior surface of the uterus. Normal appearing uterus and bilateral adnexa. VFI in cephalic presentation. Clear fluid. Normal appearing placenta. Apgars 8, 9. Surgeon: Angelica Cherry hospital administrative assistant: Afshin FLOR hospital administrative assistant: Cassie Jones Type of Anesthesia: Spinal Special Medications: None Specimen's removed: Placenta Drains: Owens Estimated Blood Loss (mL): 900 Fluids Replaced: 1200 Description of Procedure: The patient was taken to the operating room where spinal anesthesia was adequate. She was prepped and draped in dorsal supine position with a leftward tilt. Using the prior surgical scar, a pfannenstiel incision was made with a scalpel and this was carried down to the underlying later of fascia. The fascia was incised in the midline. The fascial incision was extended laterally using summers scissors. The fascia was dissected off the rectus muscles cephalad and caudad using sharp dissection. The rectus muscles were in the midline using a combination of sharp and blunt dissection. The peritoneum was entered using sharp dissection. The peritoneal incision was extended bluntly using lateral traction. A bladder blade was inserted. The bladder was adhered to the mid uterus. The bladder adhesions were taken down using sharp dissection, and a bladder flap created. A low transverse incision was made on the uterus with the scalpel. The uterine incision was extended with cephalad and caudad traction. A vigorous VFI was delivered in cephalic presentation without any force, traction or delay. The cord was clamped and cut after a slight delay and the infant was handed off to the awaiting nursery staff. The placenta was removed with manual extraction, and the uterus cleared of clot and debris. The uterus was exteriorized. The hysterotomy was closed with 1-0 Vicryl in a running locked fashion. A second imbricating layer was performed. Several additional figure of eight sutures were placed for hemostasis. The uterus was placed back into the abdomen. The peritoneum was inspected and a tubular appearing structure was noted coming from the anterior peritoneum above the level of the umbilicus, connecting to the bladder flap. This structure was not bleeding and no peristalsis was noted. The left ureter was unable to be visualized. Dr. Cassie Mehta was then present for assistance. The left ureter was able to be palpated in correct anatomical position. The hysterotomy was again inspected with bleeding noted from the left angle. An additional figure of eight stitch was placed at the angle for hemostasis. Hemostasis was noted. At this point Dr. Mehta left the operating room. A hemostatic agent was placed over the hysterotomy and pressure applied. Hemostasis was again noted. The peritoneum was unable to be reapproximated as it had torn laterally on the left side, and the apex was identified of this but unable to reapproximate the peritoneum for closure. The subfascial space was inspected and noted to be hemostatic. The fascia was closed with stratafix in a running fashion. The subcutaenous space was irrigated and made hemostatic with the Bovie cautery. The subcutaneous space was closed with 3-0 Vicryl. The skin was closed with 4-0 Monocryl in a subcuticular fashion. A dressing was placed. Instrument, sponge and needle counts were correct. The patient was taken to the recovery room in stable condition. fAshin FLOR was present for the entire case and assisted with draping the patient, delivery of infant and close. Dr. eMhta was present for a portion of the case and assisted with inspection of the peritoneum and hysterotomy. Grafts/Implants Used: None Procedure Start Time: 12:36 Complications None Admit VTE Documentation VTE Present on Admission: No VTE Mechan Device Prophylaxis: SCD's
[2023-05-27] MEDS: Oxytocin 15 Units/NS 250ml 15 UNITS/250 ML IV.SOLN 83 UNITS IV (14:44)
[2023-05-27] MEDS: Ketorolac 30 MG/ML Syringe IV ×2 (14:53→20:17)
[2023-05-27] MEDS: Lactated Ringers 1,000 ML 100 ML IV (17:26)
[2023-05-27] MEDS: FLUoxetine 20 MG Capsule 40 MG PO (22:23)
[2023-05-28 00:20] VITALS: PULSE 76; RESP 16; O2SAT 97
[2023-05-28] MEDS: Ketorolac 30 MG/ML Syringe IV ×2 (02:23→08:36)
[2023-05-28 02:25] VITALS: BP 128/88; PULSE 76; RESP 16; TEMP 36.4; O2SAT 97
[2023-05-28] MEDS: Acetaminophen 500 MG Tablet 1000 MG PO ×4 (03:57→22:07)
[2023-05-28] MEDS: 0.9% Saline Lock 10 ML Syringe IV ×5 (04:40→23:13)
[2023-05-28 04:51] LABS: Hematocrit 24.8 % (37-47); Hemoglobin 8.1 g/dL (12.0-15.0); Mean Corp Hgb Conc 32.7 g/dL (32-36); Mean Corpuscular Hgb 26.1 pg (27.0-32.0); Mean Platelet Vol. 10.4 fl (6.2-12.0); Platelet Count 168 K/mm3 (150-450); RBC Distribution Width CV 14.3 % (11.6-14.6); White Blood Count 12.4 K/mm3 (4.4-11.0)
--- NOTE | 2023-05-28 08:29 | PCM.PN.OB ---
Subjective Subjective Doing well per patient and nursing staff. Ambulating and taking PO without difficulty. Voiding and passing flatus. Pain controlled. , services for assistance. Denies headache, visual changes, chest pain, shortness of breath, leg pain or increased bleeding. Lochia normal. Objective Data Objective Data Vital Signs: Vital Signs Temp Pulse Resp BP Pulse Ox O2 Del Method 97.6 F L 76 16 128/88 H 97 Room Air 05/28/23 02:25 05/28/23 02:25 05/28/23 02:25 05/28/23 02:25 05/28/23 02:25 05/28/23 02:25 Oxygen Delivery Method Room Air Weight: 209 lb 7.026 oz Body Mass Index (BMI) 36.2 Intake & Output: Intake and Output for Last 24 Hours 05/26/23 05/27/23 05/28/23 23:59 23:59 23:59 Intake Total 1724.1 / 1724.1 1000 / 1000 Output Total 1999 / 1999 700 / 700 Balance -275.9 / -275.9 300 / 300 Lab / Micro Data 05/28/23 04:40 Labs: Laboratory Results - last 24 hr 05/27/23 10:20: WBC 8.8, RBC 4.28, Hgb 11.0 L, Hct 34.2 L, MCV 79.9 L, MCH 25.7 L, MCHC 32.2, RDW Std Deviation 40.2, RDW Coeff of Tre 14.1, Plt Count 225, MPV 10.4, Immature Gran % (Auto) 0.800, Neut % (Auto) 74.4 H, Lymph % (Auto) 16.7 L, [place] % (Auto) 6.1, Eos % (Auto) 1.5, Baso % (Auto) 0.5, Absolute Neuts (auto) 6.6, Absolute Lymphs (auto) 1.47, Nucleated RBC % 0, Syphilis Total Ab Non-reactive, Blood Type A POSITIVE, Antibody Screen NEGATIVE 05/28/23 04:40: WBC 12.4 H, RBC 3.10 L, Hgb 8.1 L, Hct 24.8 L, MCV 80.0 L, MCH 26.1 L, MCHC 32.7, RDW Std Deviation 41.0, RDW Coeff of Tre 14.3, Plt Count 168, MPV 10.4 ROS Constitutional Constitutional: Reports systems reviewed and no addt'l complaints, except as documented; Denies headache(s) Eyes Eyes: Denies acute decrease in peripheral vision, blurry vision or change in vision ENT HEENT: Reports systems reviewed and no addt'l complaints, except as documented Cardiovascular Cardiovascular: Denies chest pain or dizziness Respiratory/Chest Respiratory/Chest: Denies cough, dyspnea, dyspnea on exertion, shortness of breath at rest or shortness of breath with exertion Gastrointestinal Gastrointestinal: Denies abdominal pain, diarrhea, nausea or vomiting Genitourinary Genitourinary: Denies abdominal discomfort Musculoskeletal Musculoskeletal: Denies limited range of motion Integumentary Integumentary: Reports systems reviewed and no addt'l complaints, except as documented Neurologic Neurologic: Reports systems reviewed and no addt'l complaints, except as documented Psychiatric Psychiatric: Reports systems reviewed and no addt'l complaints, except as documented Endocrine Endocrinology: Reports systems reviewed and no addt'l complaints, except as documented Hematologic/Lymphatic Hematologic/Lymphatic: Reports systems reviewed and no addt'l complaints, except as documented Allergic/Immunologic Allergic/Immunologic: Reports systems reviewed and no addt'l complaints, except as documented Physical Exam Const alert and oriented x3 General Appearance: cooperative Orientation / Consciousness: awake, oriented to person, oriented to place and oriented to time Exam Limitations: no limitations HEENT normocephalic Head and Scalp: normal to inspection, normocephalic and atraumatic Face and Sinus: normal facial exam Eyes General Eye: normal appearance of both eyes Neck full ROM Chest Chest: symmetrical chest wall rise Resp normal respiratory effort and normal air movement Auscultation: clear to auscultation bilaterally Cardio regular rate, regular rhythm, S1 normal heart sound, S2 normal heart sound, no murmurs, no rub, no gallops and no clicks GI normal to inspection, nondistended, normoactive bowel sounds and non-tender appearance of the vagina normal Bladder / Kidney Exam: no CVA tenderness Back/Spine normal ROM Extremity normal to inspection and full ROM Skin no rashes or lesions noted Neuro oriented x3 and moves all extremities Sensorium / Orientation: awake, alert and oriented to person Motor Exam: clonus absent Assessment & Plan (1) S/P repeat low transverse : PLAN: Plan 1) Routine PP Care 2) Pain management 3) I&O 4) Vitals stable 5) Planning D/C home tomorrow
[2023-05-28 08:35] VITALS: BP 115/66; PULSE 84; RESP 16; TEMP 36.6; O2SAT 96
[2023-05-28] MEDS: Iron Sucrose Complex 200 MG in 0.9% Normal Saline (100mL Bag) 100 ML 220 MG IV (09:01)
[2023-05-28] MEDS: Senna/Docusate Sodium 1 Tablet PO (09:57)
[2023-05-28 12:45] VITALS: BP 118/72; PULSE 79; RESP 16; TEMP 36.6; O2SAT 98
[2023-05-28] MEDS: Ibuprofen 600 MG Tablet PO ×2 (15:13→22:07)
[2023-05-28 16:15] VITALS: BP 126/68; PULSE 82; RESP 16; TEMP 37; O2SAT 98
[2023-05-28] MEDS: SimETHICONE 80 MG Chewable Tablet PO (17:57)
[2023-05-28] MEDS: oxyCODONE 5 MG Tablet PO (17:57)
[2023-05-28 20:00] VITALS: BP 129/77; PULSE 87; RESP 16; TEMP 36.8; O2SAT 99
[2023-05-28] MEDS: FLUoxetine 20 MG Capsule 40 MG PO (22:06)
[2023-05-28] MEDS: proCHLORPERazine 10 MG/2 ML Vial IV (23:14)
[2023-05-29 01:18] VITALS: BP 113/72; PULSE 69; RESP 16; TEMP 36.1; O2SAT 97
[2023-05-29] MEDS: Acetaminophen 500 MG Tablet 1000 MG PO ×2 (04:18→10:45)
[2023-05-29] MEDS: Ibuprofen 600 MG Tablet PO ×2 (04:19→10:45)
[2023-05-29 06:54] LABS: Absolute Lymphocyte Count 1.59 X10^3/uL (0.83-4.51); Absolute Neutrophil Count 5.5 X10^3/uL (2.0-7.7); Basophil# 0.03 X10^3/uL; Basophil% 0.4 % (0-1); Eosinophil# 0.16 X10^3/uL; Hematocrit 26.7 % (37-47); Hemoglobin 8.6 g/dL (12.0-15.0); Lymphocyte # 1.59 X10^3/ul (0.83-4.51); Lymphocyte % 19.9 % (19-41); Mean Corp Hgb Conc 32.2 g/dL (32-36); Mean Corpuscular Hgb 26.4 pg (27.0-32.0); Mean Corpuscular Volume 81.9 fL (81-99); Mean Platelet Vol. 10.9 fl (6.2-12.0); Monocyte# 0.56 X10^3/uL; NRBC Flagged by Analyzer 0 % (0-5); Neutrophil # 5.53 X10^3/uL (2.7-7.7); Neutrophil % 69.4 % (47-70); Platelet Count 167 K/mm3 (150-450); RBC Distribution Width CV 14.6 % (11.6-14.6); RBC Distribution Width SD 42.9 fl (35.1-43.9); Red Blood Count 3.26 M/mm3 (4.2-5.4)
[2023-05-29 08:00] VITALS: BP 132/81; PULSE 80; RESP 18; TEMP 36.4; O2SAT 97
--- NOTE | 2023-05-29 08:13 | PCM.DC.SUM ---
Providers Date of Admission: 05/27/23 Primary Care Physician: Dr. Masood Avila, DO Reason For Visit: REPEAT C SECTION/DELIVERY C SECTION Diagnosis Discharge Diagnosis (1) S/P repeat low transverse : Status: Acute Code(s): Z98.891 - History of uterine scar from previous surgery Plan POD 2 Repeat C/S Patient requesting discharge today HGB 8.6 up from 8.1 yesterday S/P iron infusion Start Ferrous sulfate 325 mg PO BID Follow up in office 1 week for incision check Medications at Discharge Home Medications fluoxetine 20 mg capsule 40 mg PO QHS anxiety/depression 05/27/23 ondansetron HCl 4 mg tablet 4 mg PO Q4H PRN nausea and vomiting 05/27/23 acetaminophen 500 mg tablet 1,000 mg (2 x 500 mg) PO Q6H #0 tabs 05/29/23 ferrous sulfate 325 mg (65 mg iron) tablet (FeroSul) 325 mg PO DAILY 60 days #30 tabs 05/29/23 ibuprofen 600 mg tablet 600 mg PO Q6H #0 tabs 05/29/23 sennosides 8.6 mg-docusate sodium 50 mg tablet (Stool Softener-Stimulant Laxative) 1 - 2 tab PO DAILY #0 tabs 05/29/23 Hospital Course Operations section Procedures None Summary of Care Provided Minutes Spent on Discharge: 15 Hospital Course: Patient had a scheduled, repeat section. Hospital course was uneventful. Physical Exam Narrative Patient seen at bedside. Resting comfortably. Pain is controlled with Tylenol & Motrin PO. Ambulating and voiding without difficulty. Lochia is minimal. Denies any headache, vision changes, dizziness, SOB, or CP. Desires discharge home later today. Initially was interested in placement of Nexplanon prior to discharge but would like to wait for placement in office with 6 week PP visit. Const alert and no apparent distress General Appearance: cooperative and comfortable Exam Limitations: no limitations HEENT normocephalic Eyes General Eye: normal appearance of both eyes Neck full ROM General: normal visual inspection Chest Chest: symmetrical chest wall rise Resp normal respiratory effort and normal air movement Effort and Inspection: symmetric chest movement Auscultation: clear to auscultation bilaterally Cardio regular rate and regular rhythm GI normal to inspection, nondistended, normoactive bowel sounds Back/Spine normal ROM Extremity full ROM and no calf tenderness General Extremity: normal exam except as noted Skin no rashes or lesions noted Neuro CN's II-XII intact bilaterally Psych mental status grossly normal Weight / BMI Weight Weight: 209 lb 7.026 oz Body Mass Index (BMI) 36.2 ABG / Lab / Microbiology Data 05/29/23 04:30 Laboratory: Laboratory Results - last 24 hr 05/29/23 04:30: WBC 8.0, RBC 3.26 L, Hgb 8.6 L, Hct 26.7 L, MCV 81.9, MCH 26.4 L, MCHC 32.2, RDW Std Deviation 42.9, RDW Coeff of Tre 14.6, Plt Count 167, MPV 10.9, Immature Gran % (Auto) 1.300 H, Neut % (Auto) 69.4, Lymph % (Auto) 19.9, [place] % (Auto) 7.0, Eos % (Auto) 2.0, Baso % (Auto) 0.4, Absolute Neuts (auto) 5.5, Absolute Lymphs (auto) 1.59, Nucleated RBC % 0 D/C Instructions Discharge Diet: No restrictions May resume sexual activity in: 6-8 weeks Weight Bearing Status: Weight bearing as tolerated Lifting Restrictions: 20 lbs Call your doctor if your incision/area has: Continuous Slow Oozing, Increased Pain/ Swelling, Increased Redness, Foul Smelling Discharge and Swelling at the incision site Call your doctor if you observe: Fever of 101 or Higher, Inability to urinate, Using more than 1 pad per hour, Shortness of breath, Chest pain, Calf discomfort and Uncontrolled pain Remove Dressing in: 5 days Cleanse incision/area with: Soap & Water and Keep Dressing Clean & Dry Please Follow Up With: Susannah Smallwood CNM When: 1 week in office for incision check or sooner if needed 6 weeks Meaningful Use Info Meaningful Use Diagnoses (Choose all that apply): None applicable Discharge Plan Admission Admit Date/Time: 05/27/23 09:43 Primary Reason for Your Visit: Repeat section Attending Provider: Angelica Cherry Primary Care Provider: Masood Avila Discharge Orders/Prescriptions Prescriptions: New sennosides-docusate sodium [Stool Softener-Stimulant Laxat] 8.6-50 mg Tablet 1 - 2 tab PO DAILY Qty: 0 0RF acetaminophen 500 mg Tablet 1,000 mg PO Q6H Qty: 0 0RF ibuprofen 600 mg Tablet 600 mg PO Q6H Qty: 0 0RF ferrous sulfate [FeroSul] 325 MG tablet 325 mg PO DAILY 60 Days Qty: 30 1RF Continued ondansetron HCl 4 mg tablet 4 mg PO Q4H PRN (Reason: nausea and vomiting) fluoxetine 20 MG capsule 40 mg PO QHS Referrals / Follow Up: Masood Avila DO [Primary Care Provider] - Disposition Disposition (needs filled in before D/C Order can be placed): Home, Self Care
[2023-05-29] MEDS: Senna/Docusate Sodium 1 Tablet PO (10:46)
== END 2023-05-29 11:20 | disposition home or self-care (01) | DRG 787 ==
PROVIDERS: Advanced Practice Midwife; Admitting Provider Obstetrics & Gynecology; PCP Family Medicine; Referring Provider Obstetrics & Gynecology; Visit Provider Obstetrics & Gynecology
PROC: 10D00Z1 Extraction of Products of Conception, Low, Open Approach (ICD-10-PCS; CPT 59514; principal; 2023-05-27 11:45)
DX: O34.211 Maternal care for low transverse scar from previous cesarean delivery (principal); D62 Acute posthemorrhagic anemia; F32.A Depression, unspecified; F41.9 Anxiety disorder, unspecified; O90.81 Anemia of the puerperium; O99.344 Other mental disorders complicating childbirth; Z37.0 Single live birth; Z3A.39 39 weeks gestation of pregnancy; Z87.59 Personal history of other complications of pregnancy, childbirth and the puerperium; Z79.899 Other long term (current) drug therapy
CPT/HCPCS: 59025; 59050; 85025; 85027; 86780; 86850; 86900; 86901; 99221; J1756; A4216; G0378; J2405

== ENCOUNTER 2024-12-25 02:56 | Emergency (ER) | payer OTHER, SELFPAY ==
[2024-12-25 02:58] VITALS: BP 159/102; PULSE 80; RESP 16; TEMP 36.1; O2SAT 99; BMI 36.4
--- NOTE | 2024-12-25 03:09 | EKG12_ITS ---
Test Reason : CP Blood Pressure : */* mmHG Vent. Rate : 77 BPM Atrial Rate : 77 BPM P-R Int : 144 ms QRS Dur : 80 ms QT Int : 394 ms P-R-T Axes : 22 11 34 degrees QTcB Int : 445 ms Normal sinus rhythm Normal ECG When compared with ECG of 17-Dec-2021 03:58, No significant change was found Confirmed by JORGE POPE, CHRISTINE ([id number]), design editor GENET MARINO ([id number]) on 12/29/2024 7:57:42 AM Referred By: BRYAN Confirmed By: CHRISTINE PATEL MD
[2024-12-25 03:17] LABS: Hematocrit 37.5 % (37-47); Hemoglobin 13.2 g/dL (12.0-15.0); Immature Granulocytes Count 0.010 X10^3/uL (0.0-0.0); Mean Corp Hgb Conc 35.2 g/dL (32-36); Mean Corpuscular Volume 80.8 fL (81-99); Mean Platelet Vol. 9.6 fl (6.2-12.0); NRBC Flagged by Analyzer 0 % (0-5); Platelet Count 230 K/mm3 (150-450); RBC Distribution Width CV 14.6 % (11.6-14.6); RBC Distribution Width SD 42.2 fl (35.1-43.9); Red Blood Count 4.64 M/mm3 (4.2-5.4); White Blood Count 5.4 K/mm3 (4.4-11.0)
--- NOTE | 2024-12-25 03:20 | RAD_ITS ---
PROCEDURE: CHEST 1 VIEW (PORTABLE) 12/25/2024 REASON FOR EXAM: CHEST PAIN TECHNIQUE: Frontal view of the chest. COMPARISON: None. FINDINGS: Mild bilateral basilar atelectatic pulmonary changes. There is no demonstrated pleural abnormality. Normal heart and pericardium. Normal mediastinum and rosalio. Normal visualized pulmonary arteries. Normal visualized aortic arch and descending thoracic aorta. Normal visualized thoracic spine. Normal visualized ribs, clavicles, and shoulders. There is no demonstrated abnormality of the visualized soft tissue structures of the upper abdomen. RAD/Chest 1 View (Portable) IMPRESSION: Mild bilateral basilar atelectatic pulmonary changes. Reading Location: [facility]
[2024-12-25] MEDS: Ketorolac 30 MG/ML Syringe IV (03:50)
[2024-12-25 03:57] VITALS: BP 100/54; PULSE 77; RESP 19; O2SAT 96
[2024-12-25 03:58] LABS: Anion Gap 12 (5-15); BUN 16 mg/dL (4-19); BUN/Creat Ratio 26.1 RATIO (10-20); Calcium,Total 9.1 mg/dL (7.6-11.0); Carbon Dioxide 23.1 mmol/L (21.0-32.0); Chloride 106 mmol/L (98-108); Estimated Creatinine Clearance 149.42 ml/min (50-250); Glucose 100 mg/dL (70-99); Potassium 3.7 mmol/L (3.3-5.1); Troponin T High Sensitivity < 6 ng/L (<=14)
[2024-12-25 04:02] LABS: Internal QC Validated? YES +Cl - CLEAR BKGD; Pregnancy, Serum, hCG Quali. NEGATIVE Negative; Record Kit Lot#, Serum Preg. 0000980607
[2024-12-25 04:04] LABS: D-Dimer Quantitative (DVT/PE) < 0.27 FEU/ug/m (0.27-0.49)
[2024-12-25 04:21] LABS: Magnesium 1.8 mg/dL (1.5-2.2)
--- NOTE | 2024-12-25 04:37 | EX.ED.DYSGE1 ---
HPI History of Present Illness Chief Complaint: Chest Pain Informant: patient Narrative Narrative: Patient is a 29-year-old female with past medical history of anxiety and depression. She states that she has had midsternal to left-sided chest discomfort for almost 24 hours. She denies any family history of cardiac disease at a young age. She denies any history of DVT/PE or recent travel or surgery. She denies any illicit drug use or excessive stimulant use. She states has been no recent trauma or increased physical activity. She states that her symptoms have not resolved over time and this concerns her that it could be potentially cardiac in nature and therefore she would comes in for evaluation. [facility] Medical History (Updated 12/27/24 @ 01:[address] Ricky Rivas, DO) MRSA infection Non-smoker Anxiety Depression 39 weeks gestation of Home Medications ?Medication ?Instructions ?Recorded ?Last Taken ?Type fluoxetine 20 mg capsule 40 mg PO QHS anxiety/depression 05/27/23 05/26/23 22:00 History 40 mg acetaminophen 500 mg tablet 1,000 mg (2 x 500 mg) PO Q6H #0 05/29/23 Unknown Rx tabs ibuprofen 600 mg tablet 600 mg PO Q6H #0 tabs 05/29/23 Unknown Rx metformin 500 mg tablet 1,000 mg PO BID 12/25/24 Unknown History Allergy/AdvReac Type Severity Reaction Status Date / Time No Known Allergies Allergy Verified 12/25/24 02:57 Surgical History S/P repeat low transverse Previous section Social History Smoking Status: Never smoker alcohol intake: current alcohol intake frequency: a few times a week [facility] ED Constitutional Constitutional ED: Denies chills or fever(s) Eyes Eyes: Denies blurry vision or change in vision ENT ENT ED: Denies sore throat Cardiovascular Cardiovascular: Reports chest pain; Denies palpitations or racing heartbeat Respiratory/Chest Respiratory/Chest: Denies cough or dyspnea Gastrointestinal Gastrointestinal: Denies abdominal pain, diarrhea, nausea or vomiting Musculoskeletal Musculoskeletal: Denies back pain Integumentary Denies rash Neurologic Neurologic: Denies headache(s) Psychiatric Psychiatric: Reports anxiety and depression Hematologic/Lymphatic Hematologic/Lymphatic: Denies easy bleeding or easy bruising EXAM Physical Exam Const Vital Signs: 12/25/24 02:58 12/25/24 03:16 12/25/24 03:57 Temperature 97 F L Temperature Source Oral Pulse Rate 80 77 Respiratory Rate 16 19 H Blood Pressure 159/102 H 100/54 L Blood Pressure Mean 121 69 Pulse Ox 99 96 Oxygen Delivery Method Room Air Room Air Positive well nourished and well developed General Appearance ED: well developed; Negative for pallor HEENT HEENT Narrative: Normocephalic atraumatic Eyes PERRL and EOMs intact bilaterally General Eye ED: Negative for scleral icterus Neck supple Chest Wall Chest Narrative: No bony deformity or crepitance noted Patient does have reproducible pain with palpation along the left sternal aspect of the anterior chest. Patient states this is the same pain she has been experiencing. There is no overlying soft tissue changes to suggest trauma or infection. Resp normal respiratory effort and clear to auscultation bilaterally Cardio regular rate and regular rhythm Rate: other Other Details: Heart is regular rate and rhythm without murmurs rubs or gallops Radial and carotid pulses are equal and symmetric GI normal to inspection, nondistended, normoactive bowel sounds, non-tender, non-distended and no masses Auscultation: normoactive bowel sounds Palpation: soft Extremity normal to inspection Extremity Narrative: No asymmetric edema no pitting edema negative Homans' sign bilaterally Neuro oriented x3, CN's II-XII intact bilaterally and no sensory deficits noted Sensorium / Orientation: alert Motor Exam: strength 5/5 throughout Psych Mood & Affect: anxious Skin no rashes or lesions noted and no wounds General Skin Exam: Negative for jaundice or pallor MDM MDM MDM Narrative Medical decision making narrative: Patient arrived to the ER hypertensive but otherwise with stable vitals. She reports she has had constant chest pain for almost 24 hours. She is low risk for ACS as well as DVT/PE. In order to assess for acute coronary syndrome versus cardiac dysrhythmia versus lung pathology such as pneumonia or pneumothorax or pulmonary embolus I did elect to perform basic laboratory studies with a D-dimer. The patient's troponin was less than 6 and as pain has been constant for most 24 hours do not feel the need for a delta troponin. She was kept on the case monitor and there was no cardiac dysrhythmia noted. D-dimer is less than 0.27 going against PE or dissection. Chest x-ray did not reveal any acute lung pathology such as pneumonia or pneumothorax. Therefore the patient's overall workup is negative she is low risk for acute coronary syndrome and as there is reproducible pain on palpation this is most likely costochondritis. I do not feel the need for further intervention or workup at this time and she is otherwise safe for discharge. History & Record Review Discussion w/independent historian: Patient Lab Data Attestation: I reviewed the patient's lab results. Labs: Laboratory Results - last 24 hr 12/25/24 12/25/24 03:05 03:36 WBC 5.4 RBC 4.64 Hgb 13.2 Hct 37.5 MCV 80.8 L MCH 28.4 MCHC 35.2 RDW Std Deviation 42.2 RDW Coeff of Tre 14.6 Plt Count 230 MPV 9.6 Immature Gran % (Auto) 0.200 Neut % (Auto) 47.6 Lymph % (Auto) 33.3 [place] % (Auto) 13.9 H Eos % (Auto) 4.1 Baso % (Auto) 0.9 Absolute Neuts (auto) 2.6 Absolute Lymphs (auto) 1.80 Nucleated RBC % 0 D-Dimer Quant (PE/DVT) < 0.27 L Sodium 141 Potassium 3.7 Chloride 106 Carbon Dioxide 23.1 Anion Gap 12 BUN 16 Creatinine 0.62 L Estim Creat Clear Calc 149.42 Est GFR (MDRD) Non-Af 123 BUN/Creatinine Ratio 26.1 H Glucose 100 H Calcium 9.1 Magnesium 1.8 Troponin T High Sens < 6 Serum , Qual NEGATIVE Radiography Diagnostic Testing: Clinical Impression(s) from Imaging Studies Chest X-Ray 12/25/24 03:20 IMPRESSION: Mild bilateral basilar atelectatic pulmonary changes. Reading Location: [place] [id number] Chest x-ray as interpreted by the emergency medicine physician reveals bibasilar atelectasis without acute infiltrate pneumothorax or pleural effusion Discharge Plan Triage Chief Complaint: Chest Pain ED Provider: Ricky Rivas Dx/Rx/DC Orders Clinical Impression: Nonspecific chest pain, Depression, Anxiety Instructions: Costochondritis, ED Chest Pain, Uncertain Cause Prescriptions: No Action fluoxetine 20 MG capsule 40 mg PO QHS acetaminophen 500 mg Tablet 1,000 mg PO Q6H Qty: 0 0RF ibuprofen 600 mg Tablet 600 mg PO Q6H Qty: 0 0RF metformin 500 mg tablet 1,000 mg PO BID Primary Care Provider: Masood Avila Referrals: Masood Avila DO [Primary Care Provider, [facility]] Activity Restrictions/Additional Instructions: Your workup today revealed no sign of abnormal heart rhythm active heart disease or DVT/PE. Your x-ray revealed no sign of pneumonia. Your history and physical exam is most consistent with costochondritis as the cause of your chest discomfort. Please take anti-inflammatory such as ibuprofen up to 3 times a day and use [id number] treatments such as lidocaine patch or IcyHot to help with symptoms. Return to the ER should you have any further concerns Print Language: Hungarian Disposition Disposition: Home, Self Care Discharge Date/Time: 12/25/24 04:43
[2024-12-25 04:38] VITALS: BP 116/67; PULSE 78; RESP 18; TEMP 36.6; O2SAT 99
== END 2024-12-25 04:43 | disposition home or self-care (01) ==
PROVIDERS: Emergency Provider Emergency Medicine; PCP Family Medicine; Visit Provider Emergency Medicine
DX: R07.89 Other chest pain (principal); F41.9 Anxiety disorder, unspecified; F32.A Depression, unspecified; Z79.899 Other long term (current) drug therapy
CPT/HCPCS: 71045; 80048; 83735; 84484; 84703; 85025; 85379; 93005; 96374; 99284; A4216